=== PATIENT | female | born 1970 | race American Indian/Alaskan Native ===

== ENCOUNTER → 2016-11-22 | Outpatient (CLI) | payer BC ==
--- NOTE | 2016-11-23 15:51 | CR ---
EXAM DATE: 11/22/16 PATIENT'S AGE: 45 Patient: ANKIT THOMAS Facility: [place], [place] Site . Site : 1970 Study: XRay Chest [id number]/2017 12:23:31 PM Ordering Physician: Nick Matthews Final Report: INDICATION: Cough TECHNIQUE: Chest 2 views. COMPARISON: May 09, 2016 FINDINGS: Cardiovascular and mediastinum: Heart size and vasculature are normal in caliber and appearance. Mediastinum is within normal limits. Lungs and pleural spaces: Lungs are clear. No sign of infiltrate or mass. No sign of pleural effusion. No pneumothorax. Bones and soft tissues: No significant findings. IMPRESSION: No sign of acute disease. Dictated by Amaris Forrest MD @ Nov 22 2016 7:34PM (Electronic Signature) Report Signed by Proxy. [facility]
== END ==
LOC: MW.CHFP 11:18
PROVIDERS: ATTEND Emergency Medicine
DX: R05 Cough (principal); M25.561 Pain in right knee; M25.562 Pain in left knee
CPT/HCPCS: 36415; 71020; 71020-26; 85025; 85652; 87804

== ENCOUNTER 2016-12-15 05:54 | Emergency (ER) | payer BC ==
[2016-12-15] MEDS ORDERED: Sodium Chloride 0.9% 1,000 ML IV ONE (05:57)
[2016-12-15] MEDS ORDERED: Ondansetron 4 MG/2 ML SDV IVPUSH ONE (05:57)
[2016-12-15] MEDS ORDERED: Morphine 10 MG/ML Syringe IV ONE (05:58)
--- NOTE | 2016-12-15 06:00 | EDM.PDOC ---
ED HPI GENERAL MEDICAL PROBLEM - General Stated Complaint: HEAD PAIN (CANCER PATIENT) Time Seen by Provider: 12/15/16 05:59 Source of Information: Reports: Patient - History of Present Illness INITIAL COMMENTS - FREE TEXT/NARRATIVE: HISTORY AND PHYSICAL: History of present illness: [] Patient presents via EMS with headache vomiting history of brain tumor since 2010 or metastasis she does relay at current do to intractable vomiting No fever chills sweats Review of systems: As per history of present illness and below otherwise all systems reviewed and negative. Past medical history: As per history of present illness and as reviewed below otherwise noncontributory. Surgical history: As per history of present illness and as reviewed below otherwise noncontributory. Social history: No reported history of drug or alcohol abuse. Family history: As per history of present illness and as reviewed below otherwise noncontributory. Physical exam: HEENT: Atraumatic, normocephalic, pupils reactive, negative for conjunctival pallor or scleral icterus, mucous membranes moist, throat clear, neck supple, nontender, trachea midline. Lungs: Clear to auscultation, breath sounds equal bilaterally, chest nontender. Heart: S1S2, regular, negative for clicks, rubs, or JVD. Abdomen: Soft, nondistended, nontender. Negative for masses or hepatosplenomegaly. Negative for costovertebral tenderness. Pelvis: Stable nontender. Genitourinary: Deferred. Rectal: Deferred. Extremities: Atraumatic, negative for cords or calf pain. Neurovascular unremarkable. Neuro: Awake, alert, oriented. Cranial nerves II through XII unremarkable. Cerebellum unremarkable. Motor and sensory unremarkable throughout. Exam nonfocal. Diagnostics: [] Lab as below Head CT without Therapeutics: [] 1 L normal saline bolus Zofran 8 mg IV Dilaudid 0.5 mg IV Rocephin 1 g IV Patient discussed with Dr. Knox accepts transfer to [address] via air service Impression: CSF leak Chest indication intracranial 2 intranasal [] Headache Vomiting Brain lesion history Definitive disposition and diagnosis as appropriate pending reevaluation and review of above. Head Pain Score (Numeric/FACES): 10 - Related Data Allergies Allergy/AdvReac Type Severity Reaction Status Date / Time bee venom protein (honey bee) Allergy Anaphylactic Verified 12/15/16 06:14 Shock codeine Allergy Rash Verified 12/15/16 06:47 hydrocodone Allergy Other Verified 12/15/16 06:47 hydromorphone Allergy Anaphylactic Verified 12/15/16 06:47 Shock morphine Allergy Rash Verified 12/15/16 06:14 oxycodone Allergy Hives Verified 12/15/16 06:47 tetracycline Allergy Rash Verified 12/15/16 06:47 Home Meds: Home Meds . [Unable to Verify Home Med List] 12/15/16 [History] ED ROS GENERAL - Review of Systems Review Of Systems: ROS reveals no pertinent complaints other than HPI. ED EXAM, GENERAL - Physical Exam Exam: See Below Course - Vital Signs Last Recorded V/S: Last Vital Signs Temp 35 C L 12/15/16 06:00 Pulse 75 12/15/16 06:58 Resp 18 12/15/16 06:58 BP 186/86 H 12/15/16 06:58 Pulse Ox 99 12/15/16 06:58 - Orders/Labs/Meds Orders: Active Orders 24 hr Category Date Time Status Head wo Cont [CT] Stat Exams 12/15/16 05:57 Taken UA W/MICROSCOPIC [URIN] Stat Lab 12/15/16 06:40 Results cefTRIAXone [Rocephin in Dextrose,Iso-Osm 1 GM/50 ML] 1 Med 12/15/16 07:00 Active gm Premix Bag 1 bag IV ONETIME Medication Orders Ceftriaxone Sodium/Dextrose 1 (gm/ Premix) 50 mls @ 100 mls/hr IV ONETIME ONE Stop: 12/15/16 07:29 Labs: Laboratory Tests 12/15/16 12/15/16 12/15/16 Range/Units 06:00 06:00 06:40 WBC 12.89 H (4.0-11.0) K/uL RBC 4.81 (4.30-5.90) M/uL Hgb 14.5 (12.0-16.0) g/dL Hct 44.0 (36.0-46.0) % MCV 91.5 (80.0-98.0) fL MCH 30.1 (27.0-32.0) pg MCHC 33.0 (31.0-37.0) g/dL RDW Std Deviation 62.1 H (28.0-62.0) fl RDW Coeff of Danielle 19 H (11.0-15.0) % Plt Count 222 (150-400) K/uL MPV 9.60 (7.40-12.00) fL Add Manual Diff YES Neutrophils % (Manual) 57 (48.0-80.0) % Band Neutrophils % 3 % Lymphocytes % (Manual) 35 (16.0-40.0) % Monocytes % (Manual) 5 (0.0-15.0) % Nucleated RBC % 0.4 /100WBC Absolute Seg Neuts 7.3 Band Neutrophils # 0.4 Lymphocytes # (Manual) 4.5 Monocytes # (Manual) 0.6 Nucleated RBCs # 0 K/uL Sodium 140 (136-146) mmol/L Potassium 3.8 (3.5-5.1) mmol/L Chloride 100 (98-110) mmol/L Carbon Dioxide 28 (21-31) mmol/L BUN 29 H (6.0-23.0) mg/dL Creatinine 0.8 (0.6-1.5) mg/dL Est Cr Clr Drug Dosing 61.77 mL/min Estimated GFR (MDRD) > 60.0 ml/min Glucose 148 H (60-110) mg/dL Calcium 10.0 (8.8-10.8) mg/dL Total Bilirubin 0.2 (0.1-1.5) mg/dL AST 12 (5-40) IU/L ALT 27 (8-54) IU/L Alkaline Phosphatase 95 (40-150) Total Protein 7.7 (6.0-8.0) g/dL Albumin 4.0 (3.5-5.0) g/dL Globulin 3.7 H (2.0-3.5) g/dL Albumin/Globulin Ratio 1.1 L (1.3-2.8) Urine Color YELLOW Urine Appearance CLEAR Urine pH 6.0 (5.0-8.0) Ur Specific [place] 1.020 (1.001-1.035) Urine Protein NEGATIVE (NEGATIVE) mg/dL Urine Glucose (UA) NEGATIVE (NEGATIVE) mg/dL Urine Ketones NEGATIVE (NEGATIVE) mg/dL Urine Occult Blood NEGATIVE (NEGATIVE) Urine Nitrite NEGATIVE (NEGATIVE) Urine Bilirubin NEGATIVE (NEGATIVE) Urine Urobilinogen 0.2 (<2.0) EU/dL Ur Leukocyte Esterase NEGATIVE (NEGATIVE) Meds: Medications Generic Name Dose Route Start Last Admin Trade Name Freq PRN Reason Stop Dose Admin Ceftriaxone Sodium/Dextrose 1 50 mls @ 100 mls/hr 12/15/16 07:00 gm/ Premix IV 12/15/16 07:29 ONETIME ONE Discontinued Medications Generic Name Dose Route Start Last Admin Trade Name Freq PRN Reason Stop Dose Admin Hydromorphone HCl 0.5 mg 12/15/16 06:19 Dilaudid IVPUSH ONETIME PRN Pain Sodium Chloride 1,000 mls @ 999 mls/hr 12/15/16 05:57 12/15/16 06:07 Normal Saline IV 12/15/16 06:57 999 mls/hr STAT ONE Administration Morphine Sulfate 2 mg 12/15/16 05:58 12/15/16 06:12 Morphine IV 12/15/16 05:59 Not Given ONETIME ONE Ondansetron HCl 8 mg 12/15/16 05:57 12/15/16 06:11 Zofran IVPUSH 12/15/16 05:58 8 mg ONETIME ONE Administration Departure - Departure Time of Disposition: 07:03 Disposition: DC/Tfer to Other 70 Condition: good, poor Clinical Impression: Brain lesion - Discharge Information - My Orders Last 24 Hours: My Active Orders 12/15/16 05:57 Head wo Cont [CT] Stat 12/15/16 06:40 UA W/MICROSCOPIC [URIN] Stat 12/15/16 07:00 cefTRIAXone [Rocephin in Dextrose,Iso-Osm 1 GM/50 ML] 1 gm Premix Bag 1 bag IV ONETIME - Assessment/Plan Last 24 Hours: My Active Orders 12/15/16 05:57 Head wo Cont [CT] Stat 12/15/16 06:40 UA W/MICROSCOPIC [URIN] Stat 12/15/16 07:00 cefTRIAXone [Rocephin in Dextrose,Iso-Osm 1 GM/50 ML] 1 gm Premix Bag 1 bag IV ONETIME
[2016-12-15] MEDS ORDERED: HYDROmorphone 2 MG/ML Syringe IVPUSH PRN (06:19)
[2016-12-15 06:45] LABS: CHLORIDE,CL 100 mmol/L (98-110); SODIUM,NA 140 mmol/L (136-146)
[2016-12-15 06:59] VITALS: BP 186/86
[2016-12-15] MEDS ORDERED: cefTRIAXone 1 GM in Premix Bag 1 BAG IV ONE (07:00)
--- NOTE | 2016-12-17 14:20 | CT ---
EXAM DATE: 12/15/16 PATIENT'S AGE: 46 Patient: ANKIT THOMAS Facility: [place], [place] Site . Site : 1970 Study: CT Head [id number]/20/2017 6:44:34 AM Ordering Physician: Shabbir Pablo Final Report: INDICATION: Severe headache for 2 days. The patient underwent craniotomy 1 month ago for tumor resection. TECHNIQUE: CT head without i.v. contrast. COMPARISON: MRI 09/03/2016 FINDINGS: CSF spaces: A large amount of pneumocephalus is present with gas seen predominantly within the subarachnoid spaces over the convexities and basilar cisterns extending to the level of the foramen magnum. Gas is also noted within the lateral ventricles, 3rd ventricle and 4th ventricles. Brain parenchyma: A gas-filled cavity seen in the right frontal lobe measuring 4.1 x 3.1 cm. On coronal image 18, this gas cavity has a wide communication through the skull base into the nasal cavity. There is mild surrounding vasogenic edema. Vasogenic edema suspected in the base of the left frontal lobe but difficult to assess due to reconstruction artifacts related to the skull and adjacent gas. No mass effect or midline shift is identified. Skull base and calvarium: Opacification of the right maxillary sinus is present with a small air-fluid level seen in the left maxillary sinus. Mucosal thickening is noted in the sphenoid sinus. The patient is status post prior ethmoid resection. The mastoid air cells are clear. The visualized orbits are grossly unremarkable. No skull fractures are seen. Bilateral frontal craniotomy noted. IMPRESSION: 1. There is a gas filled cavity in the right frontal lobe present with wide communication through the anterior skullbase into the nasal cavity. This cavity may be the result of recent tumor resection. 2. Large amount of subarachnoid gas is present and correlation with clinical history would be helpful to exclude CSF rhinorrhea through the large calvarial dehiscence in the frontal cranial fossa. 3. Neurosurgical consultation is recommended. The findings were discussed with Dr. Shea at 6:45 a.m. Dictated by Jacob Mcqueen MD @ 12/15/2016 6:56:10 AM Dictated by: Jacob Mcqueen MD @ 12/15/2016 07:01:38 (Electronic Signature) Report Signed by Proxy. [facility]
== END 2016-12-15 07:53 ==
LOC: MW.ED 05:54
DX: G93.9 Disorder of brain, unspecified (principal); Z91.030 Bee allergy status; Z88.5 Allergy status to narcotic agent; Z88.1 Allergy status to other antibiotic agents
CPT/HCPCS: 36415; 70450; 80053; 81001; 85025; 96361; 96365; 99285; J0696; J2405; J7040

== ENCOUNTER 2017-01-03 18:26 | Inpatient (IN) | payer BC ==
--- NOTE | 2017-01-03 18:48 | EDM.PDOC ---
<Janet Vaz - Last Filed: 01/03/17 18:36> ED HPI GENERAL MEDICAL PROBLEM - General Chief Complaint: General Stated Complaint: UNK Time Seen by Provider: 01/03/17 18:33 Source of Information: Reports: Patient, EMS - History of Present Illness INITIAL COMMENTS - FREE TEXT/NARRATIVE: History of present illness: []Patient has a history of a brain tumor diagnosed in 2010 and has had several complications including a cerebrospinal fluid leak that was treated in [facility] last month. She has been back in [place] for 1 week and has been receiving antibiotics and her mental status has rapidly declined. Dr. Romero spoke to her doctors at [facility] who requested a head CT and evaluation of her PICC line. Review of systems: As per history of present illness and below otherwise all systems reviewed and negative. Past medical history: As per history of present illness and as reviewed below otherwise noncontributory. Surgical history: As per history of present illness and as reviewed below otherwise noncontributory. Social history: No reported history of drug or alcohol abuse. Family history: As per history of present illness and as reviewed below otherwise noncontributory. Physical exam: General: Well developed, well nourished in NAD HEENT: Recent surgical scalp wound healing well without signs of infection,, facial edema, pupils reactive, negative for conjunctival pallor or scleral icterus, mucous membranes moist, throat clear, neck supple, nontender, trachea midline. Lungs: Clear to auscultation, breath sounds equal bilaterally, chest nontender. Heart: S1S2, regular, negative for clicks, rubs, or JVD. Abdomen: Soft, nondistended, nontender. Negative for masses or hepatosplenomegaly. Negative for costovertebral tenderness. Pelvis: Stable nontender. Genitourinary: Deferred. Rectal: Deferred. Extremities: Atraumatic, negative for cords right upper arm PICC line present Neuro: Awake, somnolent but arouses easily. Cranial nerves II through XII unremarkable. Cerebellum unremarkable. Motor and sensory unremarkable throughout. Exam nonfocal. Diagnostics: [] Therapeutics: [] Impression: [] Plan: [] Definitive disposition and diagnosis as appropriate pending reevaluation and review of above. Generalized Pain Score (Numeric/FACES): 10 - Related Data Allergies Allergy/AdvReac Type Severity Reaction Status Date / Time bee venom protein (honey bee) Allergy Anaphylactic Verified 01/03/17 18:33 Shock codeine Allergy Rash Verified 01/03/17 18:33 hydrocodone Allergy Other Verified 01/03/17 18:33 hydromorphone Allergy Anaphylactic Verified 01/03/17 18:33 Shock morphine Allergy Rash Verified 01/03/17 18:33 oxycodone Allergy Hives Verified 01/03/17 18:33 tetracycline Allergy Rash Verified 01/03/17 18:33 Home Meds: Home Meds Citalopram Hydrobromide [Celexa] 20 mg PO DAILY 01/03/17 [History] LORazepam 1 mg PO 01/03/17 [History] OLANZapine [ZyPREXA] 10 mg PO DAILY 01/03/17 [History] Prednisone [IMW: Prednisone] 10 mg PO 01/03/17 [History] Tapentadol HCl [Nucynta] 75 mg PO Q6HR PRN 01/03/17 [History] Vancomycin 1 gm IV Q12H 01/03/17 [History] Past Medical History Oncologic (Cancer) History: Reports: Other (See Below) Other Oncologic History: brain cancer ( patient is having tx in [place] since 2010 and was last seen in [place] october of this year ) - Past Surgical History Head Surgeries/Procedures: Reports: None Social & Family History - Tobacco Use Smoking Status *Q: Never Smoker - Caffeine Use Caffeine Use: Reports: None - Recreational Drug Use Recreational Drug Use: No Course - Vital Signs Last Recorded V/S: Last Vital Signs Temp 36.6 C 01/03/17 23:13 Pulse 104 H 01/03/17 23:13 Resp 16 01/03/17 23:13 BP 140/86 01/03/17 23:13 Pulse Ox 95 01/03/17 23:13 - Orders/Labs/Meds Orders: Active Orders 24 hr Category Date Time Status Chest 1V Frontal [CR] Stat Exams 01/03/17 18:50 Taken Head wo Cont [CT] Stat Exams 01/03/17 18:41 Taken Saline Lock Insert [OM.PC] Stat Oth 01/03/17 18:50 Ordered Labs: Laboratory Tests 01/03/17 01/03/17 Range/Units 19:31 19:31 WBC 4.95 (4.0-11.0) K/uL RBC 3.68 L (4.30-5.90) M/uL Hgb 11.0 L (12.0-16.0) g/dL Hct 33.7 L (36.0-46.0) % MCV 91.6 (80.0-98.0) fL MCH 29.9 (27.0-32.0) pg MCHC 32.6 (31.0-37.0) g/dL RDW Std Deviation 61.5 (28.0-62.0) fl RDW Coeff of Danielle 18 H (11.0-15.0) % Plt Count 139 L (150-400) K/uL MPV 9.00 (7.40-12.00) fL Add Manual Diff YES Neutrophils % (Manual) 61 (48.0-80.0) % Band Neutrophils % 5 % Lymphocytes % (Manual) 26 (16.0-40.0) % Monocytes % (Manual) 5 (0.0-15.0) % Eosinophils % (Manual) 1 (0.0-7.0) % Metamyelocytes % 2 % Nucleated RBC % 0.0 /100WBC Absolute Seg Neuts 3.0 Band Neutrophils # 0.2 Lymphocytes # (Manual) 1.3 Monocytes # (Manual) 0.2 Eosinophils # (Manual) 0 Absolute Metamyelocyte 0.1 Nucleated RBCs # 0 K/uL Sodium 137 (136-146) mmol/L Potassium 3.7 (3.5-5.1) mmol/L Chloride 107 (98-110) mmol/L Carbon Dioxide 20 L (21-31) mmol/L BUN 10 (6.0-23.0) mg/dL Creatinine 0.6 (0.6-1.5) mg/dL Est Cr Clr Drug Dosing 82.36 mL/min Estimated GFR (MDRD) > 60.0 ml/min Glucose 88 (60-110) mg/dL Calcium 8.5 L (8.8-10.8) mg/dL Total Bilirubin 0.8 (0.1-1.5) mg/dL AST 76 H (5-40) IU/L ALT 166 H (8-54) IU/L Alkaline Phosphatase 114 (40-150) Total Protein 6.4 (6.0-8.0) g/dL Albumin 3.4 L (3.5-5.0) g/dL Globulin 3.0 (2.0-3.5) g/dL Albumin/Globulin Ratio 1.1 L (1.3-2.8) Meds: Medications Discontinued Medications Generic Name Dose Route Start Last Admin Trade Name Davion PRN Reason Stop Dose Admin Dexamethasone 8 mg 01/03/17 20:27 01/03/17 20:59 Dexamethasone IVPUSH 01/03/17 20:28 Not Given ONETIME ONE Dexamethasone Confirm 01/03/17 20:34 01/03/17 20:40 Dexamethasone Administered 01/03/17 20:35 8 mg Dose Administration 10 mg .ROUTE .STK-MED ONE Fentanyl 50 mcg 01/03/17 19:47 01/03/17 19:59 Sublimaze IVPUSH 01/03/17 19:48 Not Given ONETIME ONE Fentanyl Confirm 01/03/17 19:50 01/03/17 20:31 Sublimaze Administered 01/03/17 19:51 Not Given Dose 100 mcg .ROUTE .STK-MED ONE Fentanyl 50 mcg 01/03/17 19:53 01/03/17 19:54 Sublimaze IVPUSH 01/03/17 19:54 50 mcg ONETIME ONE Administration Fentanyl Confirm 01/03/17 22:09 01/03/17 22:50 Sublimaze Administered 01/03/17 22:10 Not Given Dose 100 mcg .ROUTE .STK-MED ONE Fentanyl 50 mcg 01/03/17 22:13 01/03/17 22:15 Sublimaze IVPUSH 01/03/17 22:14 50 mcg NOW STA Administration Mannitol 36 gm 01/03/17 20:28 01/03/17 21:49 Mannitol 25% IV 01/03/17 20:29 36 gm ONETIME ONE Administration Departure - Departure Disposition: Refer to Observation Clinical Impression: Cerebral edema, Headache - Discharge Information <Erasmo Daniels - Last Filed: 01/04/17 03:08> ED HPI GENERAL MEDICAL PROBLEM - History of Present Illness INITIAL COMMENTS - FREE TEXT/NARRATIVE: KELLEY Benoit attending note by Dr. Erasmo Daniels M.D. Care assumed by me at 7 PM after initiation of full workup by Dr. Vaz. On my evaluation patient is alert oriented communicative and appropriate. She has a supple neck. She does have facial fullness consistent with cushingoid findings after chronic steroid administration. Respiratory rate and effort are normal. Her exam is nonfocal neurologically she is alert cooperative and able to comply with a complete neurologic exam including cranial nerves. Remainder of exam is unremarkable. Case initially discussed with patient's primary care doctor Dr. Romero is aware of history and findings. Case discussed with Dr. Tang insurance operations rep for Dr. Aquino. Dr. Tang and Dr. Alvarez both neurosurgeons at [facility]. Dr. Tang is aware history and findings including CT result of bilateral frontal lobe edema. He agrees with Decadron IV as well as mannitol 1/2 g per kilogram IV at this point. Case discussed with Dr. Devan Braun is aware of history and findings however Dr. Braun does not feel comfortable managing patient's diuresis with mannitol. Case discussed with ER at [facility]. He accepts patient in transfer if this is acceptable to neurosurgery, however Dr. Susan Neal the neurosurgeon on-call, feels that this case is not appropriate for her to accept given that the patient may require a scope of care beyond her available resources. Dr. Licona recommends the patient be transferred to [facility]. Case then discussed again with Dr. Tang at [facility]. Dr. Tang feels strongly that it's not appropriate to admit the patient to their neurosurgery service is no acute intervention is indicated. He recommends communication with a neuro-oncologist or another doctor to accept the transfer. One hour later we were contacted again by dispatch at [facility] Dr. Cheng, a neurologist, on the phone to discuss the case. Dr. Cheng I discussed the case at length and he reviewed the patient's entire case including the details of her radiographic and clinical findings after her surgeries. He clarifies that the patient had bifrontal cerebral edema and that the most relevant information will be a comparison of today's CT with the postoperative CT, which was not available to the radiologist reading our CT today. Images were transmitted and reviewed by Dr. Cheng. Case was discussed again at length and he states that he have reviewed the findings and the studies with their neuroradiologist and both of them agree that there is no significant/ substantial change from the postoperative study with bifrontal edema. Therefore he recommends that no diuresis is indicated which makes it possible to admit the patient here for further workup including MRI and further communication with their neurosurgery service for collaborative decision-making and disposition tomorrow. Dr. Cheng recommends no further treatment this evening and requested we contact her with the MRI results tomorrow. This was discussed again with Dr. Braun who is aware of history and findings and agrees with observation admission to his service. He will orchestrate the MRI communicated with the neurosurgery service at [facility] and do further workup and treatment as indicated including possible transfer if clinically or radiographically indicated tomorrow. Patient stable and observation admission to the medical floor in place. Critical care 73 minutes ED ROS GENERAL - Review of Systems Review Of Systems: See Below (History of present illness) ED EXAM, GENERAL - Physical Exam Exam: See Below (History of present illness) Departure - Departure Time of Disposition: 00:02 Condition: good
[2017-01-03] MEDS ORDERED: fentaNYL 250 MCG/5 ML SDV IVPUSH ONE (19:47)
[2017-01-03] MEDS ORDERED: fentaNYL 100 MCG/2 ML SDV ONE ×2 (19:50→22:09)
[2017-01-03] MEDS ORDERED: fentaNYL 100 MCG/2 ML SDV IVPUSH ONE (19:53)
[2017-01-03 19:58] LABS: CHLORIDE,CL 107 mmol/L (98-110); SODIUM,NA 137 mmol/L (136-146)
[2017-01-03] MEDS ORDERED: Dexamethasone 4 MG/ML SDV IVPUSH ONE (20:27)
[2017-01-03] MEDS ORDERED: Mannitol 12.5 GM/50 ML SDV IV ONE (20:28)
[2017-01-03] MEDS ORDERED: Dexamethasone 10 MG/ML SDV ONE (20:34)
[2017-01-03] MEDS ORDERED: fentaNYL 100 MCG/2 ML SDV IVPUSH STA (22:13)
[2017-01-04] MEDS ORDERED: Gadobenate Dimeglumine 529 MG/ML 20 ML SDV IVPUSH STA (08:21)
--- NOTE | 2017-01-04 10:59 | CT ---
EXAM DATE: 01/03/17 PATIENT'S AGE: 46 Patient: ANKIT THOMAS Facility: [place], [place] Site . Site : 1970 Study: CT Head [id number]/8/2017 6:51:37 PM Ordering Physician: Milind Gonzales Final Report: HISTORY: Change in the level consciousness, history of brain cancer. TECHNIQUE: The head was scanned in axial plane at 3 mm intervals without IV contrast. Reconstructed bone windows obtained as well as sagittal coronal reconstructions. COMPARISON: 15 Dec 2016. IMPRESSION: There is persistent opacification of the right maxillary sinus. A persistent air -fluid level seen within the left maxillary sinus. Soft tissue density fills the sphenoid sinus without change. There has been ethmoid resection. Bilateral frontal craniotomy is present. There has been interval left craniotomy with repair at the defect of the anterior skullbase and nasal cavity with appearance of a mesh placed at the skullbase. A calvarial defect remains at the left frontal region. The bandlike increased density at the surgical bed most likely represents a mass but makes it difficult to exclude a small amount of extra- axial blood. There has been resolution of the pneumocephalus. There is new extensive hypodensity for vasogenic edema again, both frontal lobes. No midline shift is identified. Ventricles are normal size. Temporal tips are smaller than prior exam. IMPRESSION: 1. Interval repair of the communication between the anterior skullbase and the nasal cavity with appearance placement of mesh. The increased density at the surgical bed most likely from mesh makes it difficult to exclude a small amount of extra-axial blood. 2. There is resolution of pneumocephalus. 3. New extensive hypodensity within the white matter of both frontal lobes most consistent vasogenic edema. Report called to Dr Daniels 03 January 2017 @ 1916 hours. Dictated by Renetta Ferreira MD @ 01/03/2017 7:13:09 PM Dictated by: Renetta Ferreira MD @ 01/03/2017 19:16:19 (Electronic Signature) Report Signed by Proxy. [facility]
--- NOTE | 2017-01-04 11:00 | CR ---
EXAM DATE: 01/03/17 PATIENT'S AGE: 46 Patient: ANKIT THOMAS Facility: [place], [place] Site . Site : 1970 Study: XRay Chest [id number]/8/2017 7:09:45 PM Ordering Physician: Milind Gonzales Final Report: INDICATION: weakness TECHNIQUE: Chest radiograph 1 view COMPARISON: 11/22/2016. FINDINGS: Cardiovascular and mediastinum: The heart silhouette is normal in size and morphology. The mediastinum is normal in appearance. Interval placement of right PICC line is noted with the tip coiled, likely within the proximal left innominate vein. Lungs and pleural spaces: Both lungs are unremarkable in appearance. No sign of pleural effusion seen. No pneumothorax is identified. Bones and soft tissues: No significant findings. IMPRESSION: 1. No acute cardiopulmonary disease is seen. 2. Interval placement of right PICC line is noted with the tip coiled, likely within the proximal left innominate vein. Dictated by Jacob Mcqueen MD @ 01/03/2017 7:22:19 PM Dictated by: Jacob Mcqueen MD @ 01/03/2017 19:22:21 (Electronic Signature) Report Signed by Proxy. [facility]
--- NOTE | 2017-01-04 11:35 | MR ---
EXAMINATION: MRI of the brain with and without contrast HISTORY: Altered mental status COMPARISON: CT dated 01/03/2017 TECHNIQUE: Multiplanar and multisequence images obtained through the brain before and following the administration of 14 mL of Gadavist. FINDINGS: Postsurgical changes are noted along the frontal calvarium within the region of the cribri form plate. There is underlying edema within the frontal lobes bilaterally. Mild diffusion restricti on is noted within the medial and anterior aspect of the left frontal lobe, however this is the surg ical bed an outside of the parenchyma. There is mild meningeal enhancement. Postsurgical changes ext end to the region of the sphenoid sinus with mild underlying heterogeneity, possibly postoperative h ematoma given the intrinsic T1 signal. No abnormal intracranial enhancement identified. No significa nt extra-axial fluid collection. There is fluid within the right maxillary sinus. Fluid is also note d within the mastoid air cells, left greater than right. The ventricles appear symmetric. The cerebe llum, midbrain, and cerebellar pontine angles appear normal. The craniocervical junction is unremark able. Pituitary gland and sella appear normal. The midline structures are otherwise normal. The orbi ts and globes are symmetric. IMPRESSION: 1. Postoperative changes noted within the region of the cribriform plate and frontal lobes. There is postsurgical encephalomalacia and moderate edema within the frontal lobes bilaterally. 2. No evidence of parenchymal diffusion restriction. 3. Opacification of the right maxillary sinus and the mastoid air cells bilaterally, left greater th an right. 4. Mild meningeal enhancement likely postsurgical in nature.
[2017-01-04] MEDS ORDERED: Acetaminophen 325 MG Tab PO PRN (12:03)
[2017-01-04] MEDS ORDERED: Cefepime 2 GM in Premix Bag 1 BAG IV SCH (12:45)
[2017-01-04] MEDS: Carboxymethylcellulose Sodium 0.5% Ophth Soln 0.4 ML UD Box of 30 EYEBOTH PRN ×2 (13:09→20:26)
[2017-01-04 13:35] LABS: CHLORIDE,CL 107 mmol/L (98-110); SODIUM,NA 140 mmol/L (136-146)
[2017-01-04] MEDS: TAPENTADOL HCL 50 MG PO PRN (17:35)
--- NOTE | 2017-01-04 17:46 | PCM.HP ---
H&P History of Present Illness - General Date of Service: 01/04/17 Admit Problem/Dx: Admission Diagnosis/Problem Admission Diagnosis/Problem Cerebral edema - History of Present Illness Initial Comments - Free Text/Narative: 46 yo female admitted 01/04/17 for cerebral edema with pmh of neuroblastoma s/p excision and multiple revisions at [place] with recent venous graft placement. Patient has history of neuroblastoma diagnosed in 2010 with multiple subsequent complications including CSF leak and most recent venous graft placement at [facility] last month. Patient had been in [place] for one week receiving antibiotics and her mental status had rapidly declined. The patient's PCP, Dr. Romero, had spoke with her physicians at [facility] who requested a head CT and evaluation of her PICC line thus she presented to the emergency department. In emergency department CT of the head was suggestive of bilateral frontal lobe edema. Case was then discussed with Dr. Tang plater production for Dr. Aquino neurosurgeons at [facility]. Dr. Tang was aware of history and findings including CT results bilateral frontal lobe edema. He agreed with the use of Decadron IV as well as mannitol half gram per kilogram. Case was then discussed with Dr. Devan Braun who secondary to the patient's complicated neuro status felt patient was not appropriate for admission and should be transfer. Case was discussed with ER physician at [facility] who talked with their on-call neurosurgeon Dr. Susan Neal who recommended the patient be transferred to [facility]. Patient was given Decadron and Mannitol. Dr. Cheng a neurolgist at [facility] discussed the case with our ED and clarified that the patient had bifrontal cerebral edema but comparison from previous studies would need to be done to determine it's significance. He talked with their neuroradiolgist and both agreed that there was no significant change from post op study to with respect to bifrontal edema. After administration of Decadron and mannitol patient's neuro status improved. Case was once again discussed with Dr. Braun who agreed to admit patient for observation with MRI and comparison followup with [facility] for possible transfer if any significant changes. Generalized Pain Score (Numeric/FACES): 0 - Related Data Allergies/Adverse Reactions: Allergies Allergy/AdvReac Type Severity Reaction Status Date / Time bee venom protein (honey bee) Allergy Anaphylactic Verified 01/03/17 18:33 Shock codeine Allergy Rash Verified 01/03/17 18:33 hydrocodone Allergy Other Verified 01/03/17 18:33 hydromorphone Allergy Anaphylactic Verified 01/03/17 18:33 Shock morphine Allergy Rash Verified 01/03/17 18:33 oxycodone Allergy Hives Verified 01/03/17 18:33 tetracycline Allergy Rash Verified 01/03/17 18:33 Home Medications: Home Meds Citalopram Hydrobromide [Celexa] 20 mg PO DAILY 01/03/17 [History] LORazepam 1 mg PO 01/03/17 [History] OLANZapine [ZyPREXA] 10 mg PO DAILY 01/03/17 [History] Prednisone [IMW: Prednisone] 10 mg PO 01/03/17 [History] Vancomycin 1 gm IV Q12H 01/03/17 [History] Tapentadol HCl [Nucynta] 50 mg PO Q6HR PRN 01/04/17 [History] Past Medical History HEENT History: Reports: None Cardiovascular History: Reports: None Respiratory History: Reports: None Gastrointestinal History: Reports: None Genitourinary History: Reports: None 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: Musculoskeletal History: Reports: None Neurological History: Reports: None Psychiatric History: Reports: Anxiety, Depression Endocrine/Metabolic History: Reports: None Hematologic History: Reports: None Immunologic History: Reports: None Oncologic (Cancer) History: Reports: Other (See Below) Other Oncologic History: brain cancer ( patient is having tx in [place] since 2010 and was last seen in [place] this year ) Dermatologic History: Reports: None - Infectious Disease History Infectious Disease History: Reports: None - Past Surgical History Head Surgeries/Procedures: Reports: None HEENT Surgical History: Reports: None Cardiovascular Surgical History: Reports: None Respiratory Surgical History: Reports: None GI Surgical History: Reports: None Female Surgical History: Reports: None Endocrine Surgical History: Reports: None Neurological Surgical History: Reports: Intracranial Musculoskeletal Surgical History: Reports: None Dermatological Surgical History: Reports: Skin Graft Social & Family History - Family History Family Medical History: Noncontributory - Tobacco Use Smoking Status *Q: Current Every Day Smoker Years of Tobacco use: 30 Packs/Tins Daily: 1 Second Hand Smoke Exposure: No - Caffeine Use Caffeine Use: Reports: Tea - Recreational Drug Use Recreational Drug Use: No H&P Review of Systems - Review of Systems: Review Of Systems: See Below General: Denies: Fever, Chills, Diaphoresis HEENT: Denies: Contact Lenses, Sore Throat Pulmonary: Denies: Shortness of Breath, Hemoptysis Cardiovascular: Denies: Chest Pain Gastrointestinal: Denies: Abdominal Pain, Black Stool, Bloody Stool Genitourinary: Denies: Dysuria Musculoskeletal: Denies: Neck Pain Skin: Denies: Cyanosis Psychiatric: Denies: Confusion, Depression Neurological: Denies: Confusion, Dizziness Hematologic/Lymphatic: Denies: Anemia Immunologic: Denies: Anaphylaxis Exam - Exam Exam: See Below - Vital Signs Vital Signs: Last Vital Signs Temp 36.7 C 01/04/17 17:01 Pulse 87 01/04/17 17:01 Resp 16 01/04/17 17:01 BP 157/94 H 01/04/17 17: Pulse Ox 99 01/04/17 17:01 Weight: 70.4 kg - Exam Quality Assessment: DVT Prophylaxis General: Alert, Oriented, Cooperative HEENT: PERRLA, Hearing Intact, Mucosa Moist & [place], Nares Patent, Normal Nasal Septum, Posterior Pharynx Clear, Conjunctiva Clear, EOMI, EACs Clear, TMs Clear Neck: Supple, Trachea Midline, 2 Lungs: Clear to Auscultation, Normal Respiratory Effort Cardiovascular: Regular Rate, Regular Rhythm Abdomen: Normal Bowel Sounds, Soft Extremities: Normal Inspection, Normal Pulses Peripheral Pulses: 2+: Radial (L), Radial (R), Posterior Tibial (L), Posterior Tibial (R), Dorsalis Pedis (L), Dorsalis Pedis (R) Skin: Warm, Dry, Intact Neurological: Cranial Nerves Intact, Reflexes Equal Bilateral Neuro Extensive - Mental Status: Alert, Oriented x3, Normal Mood/Affect, Normal Cognition Neuro Extensive - Motor, Sensory, Reflexes: CN II-XII Intact Psychiatric: Alert, Normal Affect, Normal Mood - Patient Data Lab Results last 24 hrs: Laboratory Results - last 24 hr 01/04/17 01/04/17 Range/Units 13:00 13:00 WBC 7.33 (4.0-11.0) K/uL RBC 3.52 L (4.30-5.90) M/uL Hgb 10.6 L (12.0-16.0) g/dL Hct 32.0 L (36.0-46.0) % MCV 90.9 (80.0-98.0) fL MCH 30.1 (27.0-32.0) pg MCHC 33.1 (31.0-37.0) g/dL RDW Std Deviation 58.6 (28.0-62.0) fl RDW Coeff of Danielle 18 H (11.0-15.0) % Plt Count 151 (150-400) K/uL MPV 9.40 (7.40-12.00) fL Neut % (Auto) 79.8 (48.0-80.0) % Lymph % (Auto) 15.7 L (16.0-40.0) % [place] % (Auto) 4.4 (0.0-15.0) % Eos % (Auto) 0.0 (0.0-7.0) % Baso % (Auto) 0.1 (0.0-1.5) % Neut # (Auto) 5.9 H (1.4-5.7) K/uL Lymph # (Auto) 1.2 (0.6-2.4) K/uL [place] # (Auto) 0.3 (0.0-0.8) K/uL Eos # (Auto) 0.0 (0.0-0.7) K/uL Baso # (Auto) 0.0 (0.0-0.1) K/uL Nucleated RBC % 0.0 /100WBC Nucleated RBCs # 0 K/uL Sodium 140 (136-146) mmol/L Potassium 3.8 (3.5-5.1) mmol/L Chloride 107 (98-110) mmol/L Carbon Dioxide 21 (21-31) mmol/L BUN 15 (6.0-23.0) mg/dL Creatinine 0.7 (0.6-1.5) mg/dL Est Cr Clr Drug Dosing 70.60 mL/min Estimated GFR (MDRD) > 60.0 ml/min Glucose 220 H (60-110) mg/dL Calcium 9.0 (8.8-10.8) mg/dL Total Bilirubin 0.4 (0.1-1.5) mg/dL AST 39 (5-40) IU/L ALT 148 H (8-54) IU/L Alkaline Phosphatase 111 (40-150) Total Protein 6.4 (6.0-8.0) g/dL Albumin 3.6 (3.5-5.0) g/dL Globulin 2.8 (2.0-3.5) g/dL Albumin/Globulin Ratio 1.3 (1.3-2.8) Result Diagrams: 01/04/17 13:00 01/04/17 13:00 *Q Meaningful Use (ADM) - VTE *Q VTE Criteria *Q: - Stroke *Q Stroke Criteria *Q: - AMI *Q AMI Criteria *Q: - Problem List (1) Cerebral edema SNOMED Code(s): 9995679 ICD Code: G93.6 - CEREBRAL EDEMA Status: Acute Priority: High Current Visit: Yes (2) Brain lesion SNOMED Code(s): 876173762 ICD Code: G93.9 - DISORDER OF BRAIN, UNSPECIFIED Status: Chronic Priority : High Current Visit: Yes Problem List Initiated/Reviewed/Updated: Yes Orders Last 24hrs: Active Orders 24 hr Category Date Time Status Admission Status [Patient Status] [ADT] Routine ADT 01/03/17 23:59 Active Antiembolic Devices [RC] PER UNIT ROUTINE Care 01/04/17 02:07 Active Oxygen Therapy [RC] PRN Care 01/04/17 02:06 Active VTE/DVT Education [RC] PER UNIT ROUTINE Care 01/04/17 02:06 Active Vital Signs [RC] Q4H Care 01/04/17 02:06 Active Regular Diet [DIET] Diet 01/04/17 Breakfast Active VANCOMYCIN TROUGH [CHEM] Routine Lab 01/06/17 01:00 Ordered Acetaminophen [Tylenol] Med 01/04/17 12:03 Active 650 mg PO Q6H PRN Carboxymethylcellulose Sodium [Refresh Plus 0.5%] Med 01/04/17 12:05 Active 1 each EYEBOTH ASDIRECTED PRN Dexamethasone Med 01/04/17 21:00 Active 2 mg PO BID Ertapenem [INVanz] 1 gm Med 01/04/17 21:00 Active Sodium Chloride 0.9% [Normal Saline] 50 ml IV Q24H Patient's Own Medication [Ptom] Med 01/04/17 17:08 Active 1 each PO Q6HR PRN Vancomycin 1,250 mg Med 01/04/17 13:30 Active Sodium Chloride 0.9% [Normal Saline] 250 ml IV Q12H Vancomycin Pharmacy to Dose [Pharmacy to Dose - Med 01/04/17 12:45 Active Vancomycin] 1 dose .XX ASDIRECTED Sequential Compression Device [OM.PC] Per Unit Routine Oth 01/04/17 02:06 Ordered Medication Orders Acetaminophen (Tylenol) 650 mg PO Q6H PRN PRN Reason: Pain Last Admin: 01/04/17 13:08 Dose: 650 mg Artificial Tears (Refresh Plus 0.5%) 1 each EYEBOTH ASDIRECTED PRN PRN Reason: Dry Eyes Last Admin: 01/04/17 13:09 Dose: 1 mm Dexamethasone (Dexamethasone) 2 mg PO BID RIVER Vancomycin HCl 1,250 mg/ (Sodium Chloride) 250 mls @ 250 mls/hr IV Q12H RIVER Last Admin: 01/04/17 14:30 Dose: 250 mls/hr Ertapenem 1 gm/ Sodium (Chloride) 50 mls @ 100 mls/hr IV Q24H RIVER Tapentadol Hcl 50 Mg 1 each PO Q6HR PRN PRN Reason: Pain Last Admin: 01/04/17 17:35 Dose: 1 each Vancomycin HCl (Pharmacy To Dose - Vancomycin) 1 dose .XX ASDIRECTED [facility] Assessment/Plan Comment:: 46 yo female admitted 01/04/17 for cerebral edema with pmh of neuroblastoma s/p excision and multiple revisions at [place] with recent venous graft placement. MRI was performed and images were pushed to [facility] where Dr. Cheng, neurologist, reviewed the films with their neuroradiologist and determined that there was no significant changes from previous postoperative imaging. Patient will cont. IV Ertapenim 1 g q 24 hrs and Vancomycin until she is seen again at [place]. Dr. Cheng recommended 1 wk of Dexamethasone 2 mg PO BID followed by 1 wk of Dexamethasone 1 mg PO BID. He also suggested that the patient would most likely benefit more from a halfway facility that can administer abx as well as watch closely for any further changes in mental status that may indicate future cerebral edema. Will work with mental health social worker for local placement
[2017-01-04] MEDS ORDERED: Hydrocortisone 1% Crm 30 GM Tube TOP PRN (19:37)
[2017-01-04] MEDS: Dexamethasone 4 MG Tab PO SCH (20:21)
[2017-01-04] MEDS: Ertapenem 1 GM in Sodium Chloride 0.9% 50 ML IV SCH (20:27)
[2017-01-04] MEDS ORDERED: Lisinopril 10 MG Tab PO ONE (21:18)
[2017-01-05] MEDS: TAPENTADOL HCL 50 MG PO PRN ×2 (05:03→14:36)
[2017-01-05] MEDS: Dexamethasone 4 MG Tab PO SCH ×2 (09:11→20:55)
--- NOTE | 2017-01-05 12:44 | PCM.PN ---
- Review of Systems Systems Review Comment:: feeling well no complaints. - Patient Data Vitals - most recent: Last Vital Signs Temp 36.4 C 01/05/17 08:00 Pulse 87 01/05/17 08:00 Resp 18 01/05/17 08:00 BP 145/93 H 01/05/17 08:00 Pulse Ox 96 01/05/17 08:00 Weight - most recent: 70.4 kg I&O - last 24 hours: Intake & Output 01/04/17 01/05/17 01/05/17 22:59 06:59 14:59 Intake Total 541 900 Output Total 800 800 Balance -259 100 Lab Results last 24 hrs: Laboratory Results - last 24 hr 01/04/17 01/04/17 01/05/17 Range/Units 13:00 13:00 11:07 WBC 7.33 (4.0-11.0) K/uL RBC 3.52 L (4.30-5.90) M/uL Hgb 10.6 L (12.0-16.0) g/dL Hct 32.0 L (36.0-46.0) % MCV 90.9 (80.0-98.0) fL MCH 30.1 (27.0-32.0) pg MCHC 33.1 (31.0-37.0) g/dL RDW Std Deviation 58.6 (28.0-62.0) fl RDW Coeff of Danielle 18 H (11.0-15.0) % Plt Count 151 (150-400) K/uL MPV 9.40 (7.40-12.00) fL Neut % (Auto) 79.8 (48.0-80.0) % Lymph % (Auto) 15.7 L (16.0-40.0) % [place] % (Auto) 4.4 (0.0-15.0) % Eos % (Auto) 0.0 (0.0-7.0) % Baso % (Auto) 0.1 (0.0-1.5) % Neut # (Auto) 5.9 H (1.4-5.7) K/uL Lymph # (Auto) 1.2 (0.6-2.4) K/uL [place] # (Auto) 0.3 (0.0-0.8) K/uL Eos # (Auto) 0.0 (0.0-0.7) K/uL Baso # (Auto) 0.0 (0.0-0.1) K/uL Nucleated RBC % 0.0 /100WBC Nucleated RBCs # 0 K/uL Sodium 140 (136-146) mmol/L Potassium 3.8 (3.5-5.1) mmol/L Chloride 107 (98-110) mmol/L Carbon Dioxide 21 (21-31) mmol/L BUN 15 (6.0-23.0) mg/dL Creatinine 0.7 (0.6-1.5) mg/dL Est Cr Clr Drug Dosing 70.60 mL/min Estimated GFR (MDRD) > 60.0 ml/min Glucose 220 H (60-110) mg/dL POC Glucose 151 H (60-110) mg/dL Calcium 9.0 (8.8-10.8) mg/dL Total Bilirubin 0.4 (0.1-1.5) mg/dL AST 39 (5-40) IU/L ALT 148 H (8-54) IU/L Alkaline Phosphatase 111 (40-150) Total Protein 6.4 (6.0-8.0) g/dL Albumin 3.6 (3.5-5.0) g/dL Globulin 2.8 (2.0-3.5) g/dL Albumin/Globulin Ratio 1.3 (1.3-2.8) Med Orders - Current: Current Medications Acetaminophen (Tylenol) 650 mg PO Q6H PRN PRN Reason: Pain Last Admin: 01/04/17 13:08 Dose: 650 mg Artificial Tears (Refresh Plus 0.5%) 1 each EYEBOTH ASDIRECTED PRN PRN Reason: Dry Eyes Last Admin: 01/04/17 20:26 Dose: 1 mm Dexamethasone (Dexamethasone) 2 mg PO BID RIVER Last Admin: 01/05/17 09:11 Dose: 2 mg Hydrocortisone (Hydrocortisone 1% Crm) 30 gm TOP ASDIRECTED PRN PRN Reason: Itching Last Admin: 01/04/17 20:19 Dose: 1 applic Vancomycin HCl 1,250 mg/ (Sodium Chloride) 250 mls @ 250 mls/hr IV Q12H RIVER Last Admin: 01/05/17 00:46 Dose: 250 mls/hr Ertapenem 1 gm/ Sodium (Chloride) 50 mls @ 100 mls/hr IV Q24H [facility] Last Admin: 01/04/17 20:27 Dose: 100 mls/hr Tapentadol Hcl 50 Mg 1 each PO Q6HR PRN PRN Reason: Pain Last Admin: 01/05/17 05:03 Dose: 1 each Vancomycin HCl (Pharmacy To Dose - Vancomycin) 1 dose .XX ASDIRECTED [facility] Discontinued Medications Dexamethasone (Dexamethasone) 8 mg IVPUSH ONETIME ONE Stop: 01/03/17 20:28 Last Admin: 01/03/17 20:59 Dose: Not Given Dexamethasone (Dexamethasone) Confirm Administered Dose 10 mg .ROUTE .STK-MED ONE Stop: 01/03/17 20:35 Last Admin: 01/03/17 20:40 Dose: 8 mg Fentanyl (Sublimaze) 50 mcg IVPUSH ONETIME ONE Stop: 01/03/17 19:48 Last Admin: 01/03/17 19:59 Dose: Not Given Fentanyl (Sublimaze) Confirm Administered Dose 100 mcg .ROUTE .STK-MED ONE Stop: 01/03/17 19:51 Last Admin: 01/03/17 20:31 Dose: Not Given Fentanyl (Sublimaze) 50 mcg IVPUSH ONETIME ONE Stop: 01/03/17 19:54 Last Admin: 01/03/17 19:54 Dose: 50 mcg Fentanyl (Sublimaze) Confirm Administered Dose 100 mcg .ROUTE .STK-MED ONE Stop: 01/03/17 22:10 Last Admin: 01/03/17 22:50 Dose: Not Given Fentanyl (Sublimaze) 50 mcg IVPUSH NOW STA Stop: 01/03/17 22:14 Last Admin: 01/03/17 22:15 Dose: 50 mcg Gadobenate Dimeglumine (Multihance) 20 ml IVPUSH ONETIME STA Stop: 01/04/17 08:22 Last Admin: 01/04/17 08:32 Dose: 14 ml Cefepime HCl 2 gm/ Premix 50 mls @ 100 mls/hr IV Q8H [facility] Last Admin: 01/04/17 13:45 Dose: 100 mls/hr Lisinopril (Prinivil) 10 mg PO ONETIME ONE Stop: 01/04/17 21:19 Last Admin: 01/04/17 21:31 Dose: 10 mg Mannitol (Mannitol 25%) 36 gm IV ONETIME ONE Stop: 01/03/17 20:29 Last Admin: 01/03/17 21:49 Dose: 36 gm - Exam General: alert, cooperative Lungs: Clear to auscultation, Normal respiratory effort Cardiovascular: Regular Rate, Regular Rhythm Abdomen: bowel sounds present, soft, no tenderness, no distension Extremities: no edema Skin: warm, dry, intact Neurological: no new focal deficit - Problem List Review Problem List Initiated/Reviewed/Updated: Yes - My Orders Last 24 Hours: My Active Orders 01/04/17 13:30 Vancomycin 1,250 mg Sodium Chloride 0.9% [Normal Saline] 250 ml IV Q12H 01/05/17 10:00 Accu Check [Blood Glucose Check, Bedside] [RC] TIDAC 01/05/17 10:36 Consult to Physical Therapy [PT Evaluation and Treatment] [CONS] Routine 01/05/17 Lunch ADA Diabetic [[place] [employer] Diet] [DIET] 01/06/17 01:00 VANCOMYCIN TROUGH [CHEM] Routine - Plan Plan:: 46 yo female admitted 01/04/17 for cerebral edema with pmh of neuroblastoma s/p excision and multiple revisions at [place] with recent venous graft placement. MRI was performed and images were pushed to [facility] where Dr. Cheng, neurologist, reviewed the films with their neuroradiologist and determined that there was no significant changes from previous postoperative imaging. Patient will cont. IV Ertapenim 1 g q 24 hrs and Vancomycin until she is seen again at [place]. Dr. Cheng recommended 1 wk of Dexamethasone 2 mg PO BID followed by 1 wk of Dexamethasone 1 mg PO BID. [place] reported recommended discharge to swing bed from there facility for several weeks of monitoring but patient refused. Patient is ambulating but needs assistance with stairs. She also needs frequent observations on her mental status and behavioral changes. Patient has been behaving appropriately here. 's work duties and other sick family members limit the amount of care he can provide at home. Anger issues between family members have limited options for additional help. I spoke with patient and she may be agreeable to placement. After talking at length with patient and they want to privately discuss amongst themselves later today regarding their preferences of placement or discharge home with home care.
[2017-01-05] MEDS: Carboxymethylcellulose Sodium 0.5% Ophth Soln 0.4 ML UD Box of 30 EYEBOTH PRN ×5 (13:31→21:55)
[2017-01-05] MEDS: Ertapenem 1 GM in Sodium Chloride 0.9% 50 ML IV SCH (20:57)
[2017-01-06] MEDS: Carboxymethylcellulose Sodium 0.5% Ophth Soln 0.4 ML UD Box of 30 EYEBOTH PRN (03:20)
[2017-01-06] MEDS: TAPENTADOL HCL 50 MG PO PRN ×2 (03:46→09:46)
[2017-01-06] MEDS: Dexamethasone 4 MG Tab PO SCH (09:04)
[2017-01-06 11:48] VITALS: BP 175/88
--- NOTE | 2017-01-06 11:49 | PCM.DCSUM1 ---
Discharge Summary - Discharge Data Discharge Date: 01/06/17 Discharge Disposition: Home, Self-Care 01 Condition: Good - Patient Summary/Data Consults: Consultations 01/05/17 10:36 Consult to Physical Therapy [PT Evaluation and Treatment] [CONS] Routine Hospital Course: 46 yo female whot has history of neuroblastoma diagnosed in 2010 with multiple subsequent complications including CSF leak and most recent venous graft placement at [facility] last month. Patient had been in [place] for one week receiving antibiotics and her mental status had rapidly declined. The patient's PCP, Dr. Romero, had spoke with her physicians at [facility] who requested a head CT line thus she presented to the emergency department. Patient had a Head CT and MRI which did not show any acute findings. The case was discussed wtih Dr. Cheng who recommend 1 wk of Dexamethasone 2 mg PO BID followed by 1 wk of Dexamethasone 1 mg PO BID. Patient had been receiving Ertapenim and Vancomycin with home infusions prior to admission for her history of encephalitis and this was continued while she was here. Patient was ambulating well and had no behavioral issues while hospitalized. Discharge home was felt safe if she had someone watching over her. had noted anger issues at home which appears to be his main frustration at providing care for her at home. After family discussion the patient has agreed to enter counseling and allow the help from her mother at home. The has decided to take patient home and to resume home IV antibiotics. Family was instructed to report any mental status changes. - Discharge Plan Home Medications: Home Meds Citalopram Hydrobromide [Celexa] 20 mg PO DAILY 01/03/17 [History] LORazepam 1 mg PO 01/03/17 [History] OLANZapine [ZyPREXA] 10 mg PO DAILY 01/03/17 [History] Prednisone [IMW: Prednisone] 10 mg PO 01/03/17 [History] Vancomycin 1 gm IV Q12H 01/03/17 [History] Tapentadol HCl [Nucynta] 50 mg PO Q6HR PRN 01/04/17 [History] Forms: ED Department Discharge Referrals: PCP,None [Primary Care Provider] - - Patient Data Vitals - Most Recent: Last Vital Signs Temp 36.2 C 01/06/17 08:08 Pulse 65 01/06/17 08:08 Resp 22 H 01/06/17 08:08 BP 146/71 H 01/06/17 08:08 Pulse Ox 100 01/06/17 08:08 Weight - Most Recent: 70.4 kg I&O - Last 24 hours: Intake & Output 01/05/17 01/06/17 01/06/17 22:59 06:59 14:59 Intake Total 1000 610 Output Total 700 300 Balance 300 310 Lab Results - Last 24 hrs: Laboratory Results - last 24 hr 01/05/17 01/06/17 01/06/17 Range/Units 16:43 01:10 07:00 POC Glucose 115 H 148 H (60-110) mg/dL Vancomycin Trough 15.5 H (5-15) ug/mL 01/06/17 Range/Units 11:41 POC Glucose 112 H (60-110) mg/dL Vancomycin Trough (5-15) ug/mL Med Orders - Current: Current Medications Acetaminophen (Tylenol) 650 mg PO Q6H PRN PRN Reason: Pain Last Admin: 01/04/17 13:08 Dose: 650 mg Artificial Tears (Refresh Plus 0.5%) 1 each EYEBOTH ASDIRECTED PRN PRN Reason: Dry Eyes Last Admin: 01/06/17 03:20 Dose: 1 drop Dexamethasone (Dexamethasone) 2 mg PO BID RIVER Last Admin: 01/06/17 09:04 Dose: 2 mg Hydrocortisone (Hydrocortisone 1% Crm) 30 gm TOP ASDIRECTED PRN PRN Reason: Itching Last Admin: 01/04/17 20:19 Dose: 1 applic Vancomycin HCl 1,250 mg/ (Sodium Chloride) 250 mls @ 250 mls/hr IV Q12H RIVER Last Admin: 01/06/17 01:48 Dose: 250 mls/hr Ertapenem 1 gm/ Sodium (Chloride) 50 mls @ 100 mls/hr IV Q24H [place] Last Admin: 01/05/17 20:57 Dose: 100 mls/hr Tapentadol Hcl 50 Mg 1 each PO Q6HR PRN PRN Reason: Pain Last Admin: 01/06/17 09:46 Dose: 1 each Vancomycin HCl (Pharmacy To Dose - Vancomycin) 1 dose .XX ASDIRECTED RIVER Discontinued Medications Dexamethasone (Dexamethasone) 8 mg IVPUSH ONETIME ONE Stop: 01/03/17 20:28 Last Admin: 01/03/17 20:59 Dose: Not Given Dexamethasone (Dexamethasone) Confirm Administered Dose 10 mg .ROUTE .STK-MED ONE Stop: 01/03/17 20:35 Last Admin: 01/03/17 20:40 Dose: 8 mg Fentanyl (Sublimaze) 50 mcg IVPUSH ONETIME ONE Stop: 01/03/17 19:48 Last Admin: 01/03/17 19:59 Dose: Not Given Fentanyl (Sublimaze) Confirm Administered Dose 100 mcg .ROUTE .STK-MED ONE Stop: 01/03/17 19:51 Last Admin: 01/03/17 20:31 Dose: Not Given Fentanyl (Sublimaze) 50 mcg IVPUSH ONETIME ONE Stop: 01/03/17 19:54 Last Admin: 01/03/17 19:54 Dose: 50 mcg Fentanyl (Sublimaze) Confirm Administered Dose 100 mcg .ROUTE .STK-MED ONE Stop: 01/03/17 22:10 Last Admin: 01/03/17 22:50 Dose: Not Given Fentanyl (Sublimaze) 50 mcg IVPUSH NOW STA Stop: 01/03/17 22:14 Last Admin: 01/03/17 22:15 Dose: 50 mcg Gadobenate Dimeglumine (Multihance) 20 ml IVPUSH ONETIME STA Stop: 01/04/17 08:22 Last Admin: 01/04/17 08:32 Dose: 14 ml Cefepime HCl 2 gm/ Premix 50 mls @ 100 mls/hr IV Q8H [facility] Last Admin: 01/04/17 13:45 Dose: 100 mls/hr Lisinopril (Prinivil) 10 mg PO ONETIME ONE Stop: 01/04/17 21:19 Last Admin: 01/04/17 21:31 Dose: 10 mg Mannitol (Mannitol 25%) 36 gm IV ONETIME ONE Stop: 01/03/17 20:29 Last Admin: 01/03/17 21:49 Dose: 36 gm *Q Meaningful Use (DIS) - VTE *Q VTE Criteria *Q: - Stroke *Q Stroke Criteria *Q: - AMI *Q AMI Criteria *Q:
== END 2017-01-06 15:05 | disposition home health service (06) | DRG 52 ==
LOC: MW.ED 18:26 → MW.MS 23:21 → OBSVTOIN 23:53 → MW.MS 23:53
PROVIDERS: ADMIT Internal Medicine; ATTEND Internal Medicine
DX: G93.6 Cerebral edema (principal); G93.9 Disorder of brain, unspecified; C74.90 Malignant neoplasm of unspecified part of unspecified adrenal gland; F41.8 Other specified anxiety disorders; E03.9 Hypothyroidism, unspecified; I10 Essential (primary) hypertension; Z88.8 Allergy status to other drugs, medicaments and biological substances; Z87.891 Personal history of nicotine dependence; Z79.899 Other long term (current) drug therapy
CPT/HCPCS: 36415; 70450; 70450-26; 70553; 70553-26; 71010; 71010-26; 80053; 80202; 82962; 85025; 96365; 96366; 96368; 96375; 96376; 97162-GP; 99285; 99285-25; A9270-GY; A9577; G0378; J0692; J1100; J1335; J2150; J3010; J3370; J7050; J8540

== ENCOUNTER 2017-01-29 06:50 | Emergency (ER) | payer BC ==
[~2017-01-29 06:50] MED LIST: Succinylcholine 200 MG/10 ML MDV IV ONE
[2017-01-29] MEDS ORDERED: Succinylcholine 200 MG/10 ML MDV IV ONE ×3 (06:54→08:25)
[2017-01-29] MEDS ORDERED: Etomidate 2 MG/ML 20 ML SDV IVPUSH ONE ×2 (07:00→08:21)
[2017-01-29] MEDS ORDERED: Rocuronium 50 MG/5 ML Vial IV ONE (07:00)
--- NOTE | 2017-01-29 07:06 | EDM.PDOC ---
ED HPI GENERAL MEDICAL PROBLEM - General Stated Complaint: POSSIBLE SEIZURE Time Seen by Provider: 01/29/17 07:08 - History of Present Illness INITIAL COMMENTS - FREE TEXT/NARRATIVE: HISTORY AND PHYSICAL: History of present illness: Patient is 46-year-old female history of cerebral neoplasm [place] prior brain surgery at [facility] per EMS she's had either one or 2 brain surgeries and is not a code 3 who presents with altered mental status with snoring respirations and unresponsive Accu-Chek 185 in the field it was confirmed with and patient is full resuscitation upon arrival no access was obtained in field and her PICC line was nonfunctional on arrival here right femoral line was placed by myself and patient was intubated by rapid sequence intubation with a 7.5 ET tube Review of systems: As per history of present illness and below otherwise all systems reviewed and negative. Past medical history: As per history of present illness and as reviewed below otherwise noncontributory. Surgical history: As per history of present illness and as reviewed below otherwise noncontributory. Social history: No reported history of drug or alcohol abuse. Family history: As per history of present illness and as reviewed below otherwise noncontributory. Physical exam: HEENT: Atraumatic, normocephalic, pupils 2-3 mm equal sluggish, negative for conjunctival pallor or scleral icterus, mucous membranes moist, throat clear, neck supple, nontender, trachea midline. Lungs: Coarse bilaterally, breath sounds shallow, chest nontender. Heart: S1S2, regular, negative for clicks, rubs, or JVD. Abdomen: Soft, nondistended, nontender. Negative for masses or hepatosplenomegaly. Pelvis: Stable nontender. Genitourinary: Grossly normal Rectal: Deferred. Extremities: Atraumatic, negative for cords or calf pain. Neurovascular unremarkable. Neuro: Unresponsive does not withdraw to pain no posturing or seizure activity noted Diagnostics: Chest x-ray Therapeutics: Lidocaine 100 mg IV etomidate 40 mg IV succinylcholine 200 mg IV Decadron 10 mg IV 8.5 central line placed right femoral with a sepsis secured with nylon suture Impression: #1 history of intracranial neoplasm #2 altered mental status with ventilatory insufficiency Definitive disposition and diagnosis as appropriate pending reevaluation and review of above. - Related Data Allergies Allergy/AdvReac Type Severity Reaction Status Date / Time bee venom protein (honey bee) Allergy Anaphylactic Verified 01/29/17 07:07 Shock codeine Allergy Rash Verified 01/29/17 07:07 hydrocodone Allergy Other Verified 01/29/17 07:07 hydromorphone Allergy Anaphylactic Verified 01/29/17 07:07 Shock morphine Allergy Rash Verified 01/29/17 07:07 oxycodone Allergy Hives Verified 01/29/17 07:07 tetracycline Allergy Rash Verified 01/29/17 07:07 Home Meds: Home Meds Citalopram Hydrobromide [Celexa] 20 mg PO DAILY 01/03/17 [History] LORazepam 1 mg PO TID PRN 01/03/17 [History] OLANZapine [ZyPREXA] 10 mg PO DAILY 01/03/17 [History] Vancomycin 1 gm IV Q12H 01/03/17 [History] Tapentadol HCl [Nucynta] 50 mg PO Q6HR PRN 01/04/17 [History] Albuterol Sulfate [Proair Hfa] 1 - 2 puff IH Q4H PRN 01/06/17 [History] Benzonatate 200 mg PO Q8H PRN 01/06/17 [History] Dexamethasone 2 mg PO BID #21 tablet 01/06/17 [Rx] Ertapenem [INVanz] 1 gm IV Q24H vial 01/06/17 [Rx] Estrogens, Conjugated [Premarin] 0.625 mg PO DAILY 01/06/17 [History] Gabapentin [Neurontin] 100 mg PO DAILY 01/06/17 [History] Levothyroxine Sodium [Levo-T] 100 mcg PO DAILY 01/06/17 [History] Ondansetron [Zofran ODT] 4 mg PO TID PRN 01/06/17 [History] fentaNYL [Fentanyl] 12 mcg TRDERM Q72H PRN 01/06/17 [History] traMADol HCl [Tramadol HCl] 50 mg PO QID PRN 01/06/17 [History] Past Medical History HEENT History: Reports: None Cardiovascular History: Reports: None Respiratory History: Reports: None Gastrointestinal History: Reports: None Genitourinary History: Reports: None [employer] History: Reports: Musculoskeletal History: Reports: None Neurological History: Reports: None Psychiatric History: Reports: Anxiety, Depression Endocrine/Metabolic History: Reports: None Hematologic History: Reports: None Immunologic History: Reports: None Oncologic (Cancer) History: Reports: Other (See Below) Other Oncologic History: brain cancer ( patient is having tx in [place] since 2010 and was last seen in [place] october of this year ) Dermatologic History: Reports: None - Infectious Disease History Infectious Disease History: Reports: None - Past Surgical History Head Surgeries/Procedures: Reports: None HEENT Surgical History: Reports: None Cardiovascular Surgical History: Reports: None Respiratory Surgical History: Reports: None GI Surgical History: Reports: None Female Surgical History: Reports: None Endocrine Surgical History: Reports: None Neurological Surgical History: Reports: Intracranial Musculoskeletal Surgical History: Reports: None Dermatological Surgical History: Reports: Skin Graft Social & Family History - Family History Family Medical History: Noncontributory - Tobacco Use Smoking Status *Q: Current Every Day Smoker Years of Tobacco use: 30 Packs/Tins Daily: 1 Second Hand Smoke Exposure: No - Caffeine Use Caffeine Use: Reports: Tea - Recreational Drug Use Recreational Drug Use: No ED ROS GENERAL - Review of Systems Review Of Systems: ROS reveals no pertinent complaints other than HPI. ED EXAM, GENERAL - Physical Exam Exam: See Below (See dictation) Course - Vital Signs Text/Narrative:: I discussed case with ER physician at [facility] who accepted patient she will go by your medical - Orders/Labs/Meds Orders: Active Orders 24 hr Category Date Time Status CXR [Chest 1V Frontal] [CR] Stat Exams 01/29/17 06:56 Ordered Departure - Departure Time of Disposition: 07:07 Disposition: DC/Tfer to Acute Hospital 02 Condition: Critical Clinical Impression: Altered mental status, Respiratory failure - Discharge Information - My Orders Last 24 Hours: My Active Orders 01/29/17 06:56 CXR [Chest 1V Frontal] [CR] Stat - Assessment/Plan Last 24 Hours: My Active Orders 01/29/17 06:56 CXR [Chest 1V Frontal] [CR] Stat
[2017-01-29] MEDS ORDERED: Dexamethasone 10 MG/ML SDV ONE (07:12)
[2017-01-29 08:19] VITALS: BP 149/94
[2017-01-29] MEDS ORDERED: Rocuronium 50 MG/5 ML Vial IVPUSH ONE (08:21)
[2017-01-29] MEDS ORDERED: Dexamethasone 4 MG/ML SDV IVPUSH ONE (08:21)
[2017-01-29] MEDS ORDERED: Lidocaine 2% 5 ML SDV IV ONE (08:21)
[2017-01-29] MEDS ORDERED: Sodium Chloride 0.9% 1,000 ML IV ONE ×2 (09:36→09:37)
--- NOTE | 2017-01-30 15:22 | CR ---
EXAM DATE: 01/29/17 PATIENT'S AGE: 46 Patient: ANKIT THOMAS Facility: [place], [place] Site . Site : [id number] Study: XRay Chest [id number]/4/2017 7:06:20 AM Ordering Physician: Gabriel Zimmerman Final Report: INDICATION: Intubation. TECHNIQUE: Portable AP supine view of the chest. COMPARISON: 01/03/2017. FINDINGS: Endotracheal tube is present with the tip approximately 2.5 cm above the saumya. Right upper extremity PICC is redemonstrated, with the tip in the upper aspect of the SVC. Nasogastric tube can be followed past the GE junction with the tip extending off of the field of view. Cardiac, mediastinal and hilar contours are stable and within normal limits. Pulmonary vasculature appears unremarkable. Low lung volumes with linear opacities seen in both perihilar regions as well as the left lung base. No appreciable pleural fluid or pneumothorax on this supine study. IMPRESSION: 1. Endotracheal tube, nasogastric tube, and right upper extremity PICC as described above. 2. Low lung volumes with new perihilar and left basilar opacities, presumably related atelectasis. Infectious or inflammatory process is considered less likely. Recommend followup. Dictated by Rubén Diaz MD @ 01/29/2017 7:14:41 AM Dictated by: Rubén Diaz MD @ 01/29/2017 07:15:22 (Electronic Signature) Report Signed by Proxy. RIMMA
== END 2017-01-29 07:43 ==
LOC: MW.ED 06:50
DX: J96.90 Respiratory failure, unspecified, unspecified whether with hypoxia or hypercapnia (principal); F41.9 Anxiety disorder, unspecified; F32.9 Major depressive disorder, single episode, unspecified; F17.210 Nicotine dependence, cigarettes, uncomplicated; R41.82 Altered mental status, unspecified; Z86.79 Personal history of other diseases of the circulatory system; Z91.030 Bee allergy status; Z88.5 Allergy status to narcotic agent; Z88.6 Allergy status to analgesic agent; Z88.1 Allergy status to other antibiotic agents; Z79.899 Other long term (current) drug therapy
CPT/HCPCS: 36415; 43753; 71010; 80053; 81001; 82150; 83690; 84484; 85025; 85610; 93005; 96361; 96374; 96375; 99291; J0330; J1100; J7040; 99284

== ENCOUNTER 2018-08-28 16:19 | Observation (INO) | payer MEDICARE, BC ==
--- NOTE | 2018-08-28 16:33 | EDM.PDOC ---
ED HPI GENERAL MEDICAL PROBLEM - General Chief Complaint: Neuro Symptoms/Deficits Stated Complaint: AMB Time Seen by Provider: 08/28/18 16:20 - History of Present Illness INITIAL COMMENTS - FREE TEXT/NARRATIVE: HISTORY AND PHYSICAL: History of present illness: The patient is a 47-year-old female with a 10 year history of brain cancer for which she has had craniotomy and is on Vimpat for seizures as well as chronic dexamethasone and presents via EMS after being found by her alongside the sofa where she usually lays and sleeps and has not been seen since 8 AM. According to EMS they were concerned as she seemed to have diminished mental status and was not moving her left side. During the course of EMS evaluation she was noted to be moving her left leg but not moving the left arm very much. EMS is familiar with this patient and says that she usually spends most of her day on the sofa and that she recently was treated with antibiotics for a skull/ scalp infection. The patient's last known well time was 7 AM when the left for work and when he came home is when he found her. The patient offers no history here but is moving all extremities with the exception of the left upper extremity but is nonverbal. She is exhibiting purposeful movement and a stroke code was called in light of the presenting symptoms. We are waiting has been arrival to get more information as the patient does not offer any history here in the ED nor does she have any complaints. Accu-Chek was performed by EMS and was within normal limits area the patient was home alone so exactly when the onset of symptoms occurred is unsure and it is unclear if the patient had a seizure. The patient did have loss of urine. According to EMS the patient is on fentanyl patches but they did not identify any patches on her body Please see below for more information from the Review of systems: As per history of present illness and below otherwise all systems reviewed and negative. Past medical history: As per history of present illness and as reviewed below otherwise noncontributory. Surgical history: As per history of present illness and as reviewed below otherwise noncontributory. Social history: No reported history of drug or alcohol abuse. Family history: As per history of present illness and as reviewed below otherwise noncontributory. Physical exam: Gen: Well-developed well-nourished female who is nontoxic and vital signs are noted by me. She is exhibiting purposeful behavior trying to cover herself up as we are undressing her. She is moving all extremities with the exception of the left upper extremity but tries to initiate movement at the shoulder. HEENT: The patient has a large scar on the frontal area of her skull scalp with some crusting and some areas of minimal drainage and there is surrounding erythema in this region. There is a frontal edema extending from this wound on the scalp down to the for head and in the periorbital areas which I am unsure if it is new or old. There are no bony defects appreciated. The mucosa is very dry. She is, normocephalic, pupils are midrange and sluggish and initially when I pop her eyelids open her eyes are deviated to the right but then come to midline and throughout the course of my evaluation she began to spontaneously open her eyes and track. There is no,r conjunctival pallor or scleral icterus, mucous membranes very dry, throat clear, neck supple, nontender, trachea midline. There is no gross thyromegaly and there are no palpable bony deformities of the facial bones that are appreciated and no nasal bleeding. There is an old well-healed scar at her left neck. Lungs: Diminished breath sounds with poor effort throughout but there is no work of breathing wheezing or stridor. breath sounds equal bilaterally, chest nontender. There is a port appreciated at her left upper chest wall Heart: S1S2, regular, negative for clicks, rubs, or JVD. Abdomen: Soft, nondistended, nontender. Bowel sounds are hypoactive and there is a well-healed midline infraumbilical scar appreciated and multiple punctate scars seen on the abdominal wall. Negative for masses or hepatosplenomegaly. Pelvis: Stable nontender. Genitourinary: Deferred. Rectal: Deferred. Extremities: Atraumatic appearing without any soft tissue injuries swelling defects or deformities throughout pedal edema or leg asymmetry, vascular is grossly unremarkable. More specifically at the left upper extremity there is no compartment swelling ecchymosis erythema or bony deformities appreciated. There is an extensive old scar seen on the volar surface of her right wrist and pulses are appreciated if faint on palpation and there is good cap refill and normal temperature in the distal hand. There is no finger or hand swelling appreciated nor any color changes appreciated. Neuro: Patient initially was keeping her eyes closed but throughout the course of my evaluation opened her eyes spontaneously and was tracking and moving all extremities with the exception of the left upper extremity. She appears to initiate movement at the shoulder and trapezius area but there is no movement from mid humerus to the hand that is appreciated by me on initial evaluation. Her left lower extremity is equal to the right and there is purposeful movement trying to cover herself up and pulled a blanket on. She is currently nonverbal. Sensory is difficult to evaluate at this time. Tone appears normal throughout extremities with the exception of the left upper extremity where there is diminished tone. Diagnostics: EKG CBC CMP INR troponin TSH prolactin UA CT scan of the head one view chest x- ray lactic acid and NIH stroke scale CPK, x-ray of humerus and forearm wound culture from scalp, blood cultures 2 Therapeutics: IV O2 monitor IV fluids vancomycin Rocephin As the last known well time was 8 AM and the patient has a long-standing history of brain cancer with brain surgeries I do not feel that she is a candidate for TPA. has now arrived to the ED and I will further discuss with him what her current care plan and regimen has been about as well as today' s events. The has now arrived at 1645 and says that he last saw her about 6:15 AM and his children left about 8 PM and she was asleep on the sofa according to him she is "cancer free" and has not had chemotherapy or radiation for over a year. She has not had seizure activity for over a year as well but is on anticonvulsants. She was on antibiotics for a wound infection to her scalp skull but finished those about 2-3 weeks ago and it was all done as an outpatient. He said that she got an infection in her old scalp wound because of all of the treatment she has received and the poor healing. She follows with Dr. Romero in our family practice clinic as well as a physician in [place]. says that he is power of prosecuting attorney along with the patient's mother and he is unsure of her CODE STATUS but believes that she would not want extenuating measures such as intubation performed. He will discuss this with the mom and give me an answer. According to the she has been not taking care of herself and pretty much spending all of her time on the sofa sleeping. He said that until recently she has not been cleaning herself and has had very poor hygiene and she just recently took a shower after about 2 weeks. He said she has had no energy no motivation. He said that when he found her on the floor next to the sofa she was laying on her left side. He said this is the same sofa that she has spent the majority of her time on. The is aware that I am unsure of what exactly happened throughout the course of the day and how long she has been lying on the floor. From appearances with the soft tissue swelling of her face/edema of her face and her poor mucous membrane hydration has been for quite some time. I will proceed to order an x-ray of the left humerus and left forearm as she may have fallen on that and I told the that potentially a laying for prolonged period of time on the extremity she may have caused a neurapraxia as the left lower extremity is moving. It is still unclear to me what was the causative problem of today's events. 1655: Patient is agitated and trying to take off her oxygen as well as her pulse ox and prefers to lay on her right side. She is exhibiting purposeful movement but is again nonverbal even with the speaking to her. She has limited movement of her left upper extremity but is moving her left lower extremity. O2 sats are in the low 90s on 100% nonrebreather. says that her for head and frontal scalp does look more erythematous and swollen than usual but the wound itself is only slightly more weeping and it has been. He does tell me that it has not looked good even though she has finished antibiotics. She is currently maintaining her airway but is aware of my concerns and will contact her mother and decide about how invasive we are going to be as it becomes necessary. 1720: Family friend who is also one of our nurses here in the ED is now at bedside and tells me that the patient was in hospice when she was in [place] and when she returned here to [place] she was no longer in hospice. According to her understanding she was told by the [facility] 6-7 months ago that there was no further treatment that they could give her for this problem. This is contrary to what the is saying that she is "cancer free". Discuss with and family friend at bedside at length attention options in light of the CT scan results. At this point the patient can either remain here for comfort care and minimal medical care such as IV antibiotics and pain management or a can transfer her to either or [place] pending the family's preference and prior care and management. They're currently discussing that. At this point they do not want anything invasive such as intubation but I did warn them that we do not have consult such as infectious disease or neurosurgery here to manage some of these symptoms and problems area Patient currently is showing improvement of her blood pressure and heart rate with IV fluids which are still infusing. After multiple family conversations the and the mother of this patient have decided that they do not want transfer to any other facility for more intensive care such as infectious disease consult neurosurgery involvement. The is aware of the lab abnormalities including the CPK and troponin as well as a WBC count liver function tests and the CT scan findings. They want to pursue comfort measures but at this point they are happy that we did give doses of antibiotics and they would like to discuss with the hospitalist any further medical management and the care plan going forward. They're aware that we do not have these consultants here and that by not transferring they are accepting of only basic medical management and then comfort measures going forward. says that this is the care plan that the patient would want and that he is agreeing to. 1925: This discuss with Dr. Lou who accepts the patient for admission and would like her to be admitted as an observation. Critical care time excluding procedures:40min Impression: Scalp/frontal bone infection, osteomyelitis; altered level of consciousness etiology unclear rule out CVA; prolonged immobilization with rhabdomyolysis and elevated troponin Definitive disposition and diagnosis as appropriate pending reevaluation and review of above. - Related Data Allergies Allergy/AdvReac Type Severity Reaction Status Date / Time bee venom protein (honey bee) Allergy Anaphylactic Verified 01/29/17 07:07 Shock codeine Allergy Rash Verified 01/29/17 07:07 hydrocodone Allergy Other Verified 01/29/17 07:07 hydromorphone Allergy Anaphylactic Verified 01/29/17 07:07 Shock morphine Allergy Rash Verified 01/29/17 07:07 oxycodone Allergy Hives Verified 01/29/17 07:07 tetracycline Allergy Rash Verified 01/29/17 07:07 Home Meds: Home Meds Citalopram Hydrobromide [Celexa] 20 mg PO DAILY 01/03/17 [History] LORazepam 1 mg PO TID PRN 01/03/17 [History] OLANZapine [ZyPREXA] 10 mg PO DAILY 01/03/17 [History] Vancomycin 1 gm IV Q12H 01/03/17 [History] Tapentadol HCl [Nucynta] 50 mg PO Q6HR PRN 01/04/17 [History] Albuterol Sulfate [Proair Hfa] 1 - 2 puff IH Q4H PRN 01/06/17 [History] Benzonatate 200 mg PO Q8H PRN 01/06/17 [History] Dexamethasone 2 mg PO BID #21 tablet 01/06/17 [Rx] Ertapenem [INVanz] 1 gm IV Q24H vial 01/06/17 [Rx] Estrogens, Conjugated [Premarin] 0.625 mg PO DAILY 01/06/17 [History] Gabapentin [Neurontin] 100 mg PO DAILY 01/06/17 [History] Levothyroxine Sodium [Levo-T] 100 mcg PO DAILY 01/06/17 [History] Ondansetron [Zofran ODT] 4 mg PO TID PRN 01/06/17 [History] fentaNYL [Fentanyl] 12 mcg TRDERM Q72H PRN 01/06/17 [History] traMADol HCl [Tramadol HCl] 50 mg PO QID PRN 01/06/17 [History] Past Medical History HEENT History: Reports: None Cardiovascular History: Reports: None Respiratory History: Reports: None Gastrointestinal History: Reports: None Genitourinary History: Reports: None [employer] History: Reports: Musculoskeletal History: Reports: None Neurological History: Reports: None Psychiatric History: Reports: Anxiety, Depression Endocrine/Metabolic History: Reports: None Hematologic History: Reports: None Immunologic History: Reports: None Oncologic (Cancer) History: Reports: Other (See Below) Other Oncologic History: brain cancer ( patient is having tx in [place] since 2010 and was last seen in [place] october of this year ) Dermatologic History: Reports: None - Infectious Disease History Infectious Disease History: Reports: None - Past Surgical History Head Surgeries/Procedures: Reports: None HEENT Surgical History: Reports: None Cardiovascular Surgical History: Reports: None Respiratory Surgical History: Reports: None GI Surgical History: Reports: None Female Surgical History: Reports: None Endocrine Surgical History: Reports: None Neurological Surgical History: Reports: Intracranial Musculoskeletal Surgical History: Reports: None Dermatological Surgical History: Reports: Skin Graft Social & Family History - Family History Family Medical History: Noncontributory - Caffeine Use Caffeine Use: Reports: Tea ED ROS GENERAL - Review of Systems Review Of Systems: ROS reveals no pertinent complaints other than HPI. ED EXAM, GENERAL - Physical Exam Exam: See Below (see dictation) Course - Vital Signs Last Recorded V/S: Last Vital Signs Temp 37.4 C 08/28/18 19:09 Pulse 118 H 08/28/18 19:09 Resp 18 08/28/18 19:09 BP 114/60 08/28/18 19:09 Pulse Ox 90 L 08/28/18 19:09 - Orders/Labs/Meds Orders: Active Orders 24 hr Category Date Time Status Patient Status [ADT] Stat ADT 08/28/18 19:24 Ordered Cardiac Monitoring [RC] . DIRECTED Care 08/28/18 16:30 Active Communication Order [RC] STAT Care 08/28/18 16:32 Active EKG Documentation Completion [RC] STAT Care 08/28/18 16:30 Active Oxygen Therapy, ED [RC] ASDIRECTED Care 08/28/18 16:30 Active Pulse Oximetry [RC] ASDIRECTED Care 08/28/18 16:30 Active CULTURE BLOOD [BC] Stat Lab 08/28/18 18:22 Results CULTURE BLOOD [BC] Stat Lab 08/28/18 18:33 Results CULTURE WOUND [RM] Stat Lab 08/28/18 17:50 Received UA RFX VICKI AND CULT IF INDIC [URIN] Stat Lab 08/28/18 16:48 Ordered Sodium Chloride 0.9% [Normal Saline] 1,000 ml Med 08/28/18 18:43 Active IV STAT Blood Culture x2 Reflex Set [OM.PC] Stat Oth 08/28/18 18:00 Ordered Medication Orders Sodium Chloride (Normal Saline) 1,000 mls @ 999 mls/hr IV STAT ONE Stop: 08/28/18 19:43 Last Admin: 08/28/18 19:08 Dose: 999 mls/hr Labs: Laboratory Tests 08/28/18 08/28/18 08/28/18 Range/Units 17:33 17:33 17:33 WBC 14.88 H (4.0-11.0) K/uL RBC 5.11 (4.30-5.90) M/uL Hgb 14.4 (12.0-16.0) g/dL Hct 42.7 (36.0-46.0) % MCV 83.6 (80.0-98.0) fL MCH 28.2 (27.0-32.0) pg MCHC 33.7 (31.0-37.0) g/dL RDW Std Deviation 48.5 (28.0-62.0) fl RDW Coeff of Danielle 16 H (11.0-15.0) % Plt Count 250 (150-400) K/uL MPV 9.20 (7.40-12.00) fL Add Manual Diff YES Neutrophils % (Manual) 67 (48.0-80.0) % Band Neutrophils % 13 % Lymphocytes % (Manual) 15 L (16.0-40.0) % Monocytes % (Manual) 5 (0.0-15.0) % Nucleated RBC % 0.0 /100WBC Absolute Seg Neuts 10.0 H (1.4-5.7) Band Neutrophils # 1.9 Lymphocytes # (Manual) 2.2 (0.6-2.4) Monocytes # (Manual) 0.7 (0.0-0.8) Nucleated RBCs # 0 K/uL INR 1.03 Lactate (0.20-2.00) mmol/L Sodium 139 (136-145) mmol/L Potassium 3.5 (3.5-5.1) mmol/L Chloride 104 (98-107) mmol/L Carbon Dioxide 24.2 (21.0-32.0) mmol/L BUN 12 (7.0-18.0) mg/dL Creatinine 1.7 H (0.6-1.0) mg/dL Est Cr Clr Drug Dosing TNP Estimated GFR (MDRD) 31.9 ml/min Glucose 129 H (74-106) mg/dL Calcium 9.2 (8.5-10.1) mg/dL Total Bilirubin 0.5 (0.2-1.0) mg/dL AST 314 H (15-37) IU/L ALT 149 H (14-63) IU/L Alkaline Phosphatase 201 H (46-116) U/L Creatine Kinase (26-308) U/L Troponin I 0.260 H* (0.000-0.056) ng/mL Total Protein 7.0 (6.4-8.2) g/dL Albumin 2.6 L (3.4-5.0) g/dL Globulin 4.4 H (2.6-4.0) g/dL Albumin/Globulin Ratio 0.6 L (0.9-1.6) TSH 3rd Generation 1.26 (0.36-3.74) uIU/mL Prolactin 16.2 ng/mL 08/28/18 08/28/18 Range/Units 17:33 17:33 WBC (4.0-11.0) K/uL RBC (4.30-5.90) M/uL Hgb (12.0-16.0) g/dL Hct (36.0-46.0) % MCV (80.0-98.0) fL MCH (27.0-32.0) pg MCHC (31.0-37.0) g/dL RDW Std Deviation (28.0-62.0) fl RDW Coeff of Danielle (11.0-15.0) % Plt Count (150-400) K/uL MPV (7.40-12.00) fL Add Manual Diff Neutrophils % (Manual) (48.0-80.0) % Band Neutrophils % % Lymphocytes % (Manual) (16.0-40.0) % Monocytes % (Manual) (0.0-15.0) % Nucleated RBC % /100WBC Absolute Seg Neuts (1.4-5.7) Band Neutrophils # Lymphocytes # (Manual) (0.6-2.4) Monocytes # (Manual) (0.0-0.8) Nucleated RBCs # K/uL INR Lactate 3.3 H (0.20-2.00) mmol/L Sodium (136-145) mmol/L Potassium (3.5-5.1) mmol/L Chloride (98-107) mmol/L Carbon Dioxide (21.0-32.0) mmol/L BUN (7.0-18.0) mg/dL Creatinine (0.6-1.0) mg/dL Est Cr Clr Drug Dosing Estimated GFR (MDRD) ml/min Glucose (74-106) mg/dL Calcium (8.5-10.1) mg/dL Total Bilirubin (0.2-1.0) mg/dL AST (15-37) IU/L ALT (14-63) IU/L Alkaline Phosphatase (46-116) U/L Creatine Kinase 6892 H (26-308) U/L Troponin I (0.000-0.056) ng/mL Total Protein (6.4-8.2) g/dL Albumin (3.4-5.0) g/dL Globulin (2.6-4.0) g/dL Albumin/Globulin Ratio (0.9-1.6) TSH 3rd Generation (0.36-3.74) uIU/mL Prolactin ng/mL Meds: Medications Generic Name Dose Route Start Last Admin Trade Name Freq PRN Reason Stop Dose Admin Sodium Chloride 1,000 mls @ 999 mls/hr 08/28/18 18:43 08/28/18 19:08 Normal Saline IV 08/28/18 19:43 999 mls/hr STAT ONE Administration Discontinued Medications Generic Name Dose Route Start Last Admin Trade Name Freq PRN Reason Stop Dose Admin Sodium Chloride 500 mls @ 999 mls/hr 08/28/18 16:45 Normal Saline IV STAT RIVER Sodium Chloride 1,000 mls @ 999 mls/hr 08/28/18 16:56 08/28/18 17:17 Normal Saline IV 08/28/18 17:56 999 mls/hr STAT ONE Administration Ceftriaxone Sodium/Dextrose 2 50 mls @ 100 mls/hr 08/28/18 17:32 08/28/18 17: 45 gm/ Premix IV 08/28/18 18:01 100 mls/hr ONETIME ONE Administration Vancomycin HCl 1 gm/ Sodium 250 mls @ 250 mls/hr 08/28/18 17:32 08/28/18 19: 08 Chloride IV 08/28/18 18:31 250 mls/hr ONETIME ONE Administration Sodium Chloride Confirm 08/28/18 19:05 Normal Saline Administered 08/28/18 19:06 Dose 250 mls @ as directed .ROUTE .STK-MED ONE Vancomycin HCl Confirm 08/28/18 19:04 08/28/18 19:08 Vancocin Administered 08/28/18 19:05 Not Given Dose 1 gm .ROUTE .STK-MED ONE Departure - Departure Time of Disposition: 19:25 Disposition: Refer to Observation Condition: Fair Clinical Impression: Elevated troponin Osteomyelitis Qualifiers: Osteomyelitis type: unspecified type Osteomyelitis location: unspecified site Qualified Code(s): M86.9 - Osteomyelitis, unspecified Rhabdomyolysis Qualifiers: Rhabdomyolysis type: traumatic Encounter type: initial encounter Qualified Code (s): T79.6XXA - Traumatic ischemia of muscle, initial encounter Altered mental status Qualifiers: Altered mental status type: unspecified Qualified Code(s): R41.82 - Altered mental status, unspecified - Discharge Information Referrals: Cliff Romero MD [Primary Care Provider] - Forms: ED Department Discharge - My Orders Last 24 Hours: My Active Orders 08/28/18 16:30 Cardiac Monitoring [RC] . DIRECTED EKG Documentation Completion [RC] STAT Oxygen Therapy, ED [RC] ASDIRECTED Pulse Oximetry [RC] ASDIRECTED 08/28/18 16:32 Communication Order [RC] STAT 08/28/18 16:48 UA RFX VICKI AND CULT IF INDIC [URIN] Stat 08/28/18 17:50 CULTURE WOUND [RM] Stat 08/28/18 18:00 Blood Culture x2 Reflex Set [OM.PC] Stat 08/28/18 18:22 CULTURE BLOOD [BC] Stat 08/28/18 18:33 CULTURE BLOOD [BC] Stat 08/28/18 18:43 Sodium Chloride 0.9% [Normal Saline] 1,000 ml IV STAT 08/28/18 19:24 Patient Status [ADT] Stat - Assessment/Plan Last 24 Hours: My Active Orders 08/28/18 16:30 Cardiac Monitoring [RC] . DIRECTED EKG Documentation Completion [RC] STAT Oxygen Therapy, ED [RC] ASDIRECTED Pulse Oximetry [RC] ASDIRECTED 08/28/18 16:32 Communication Order [RC] STAT 08/28/18 16:48 UA RFX VICKI AND CULT IF INDIC [URIN] Stat 08/28/18 17:50 CULTURE WOUND [RM] Stat 08/28/18 18:00 Blood Culture x2 Reflex Set [OM.PC] Stat 08/28/18 18:22 CULTURE BLOOD [BC] Stat 08/28/18 18:33 CULTURE BLOOD [BC] Stat 08/28/18 18:43 Sodium Chloride 0.9% [Normal Saline] 1,000 ml IV STAT 08/28/18 19:24 Patient Status [ADT] Stat
[2018-08-28] MEDS ORDERED: Sodium Chloride 0.9% 500 ML IV SCH (16:45)
[2018-08-28] MEDS ORDERED: Sodium Chloride 0.9% 1,000 ML IV ONE ×2 (16:56→18:43)
--- NOTE | 2018-08-28 17:28 | CT ---
INDICATION: 47-year-old female. Possible CVA. Prior surgery. TECHNIQUE: CT images from foramen magnum to vertex were obtained without contrast and axial sagittal and coronal reformatted images are obtained. FINDINGS: No prior scans available for comparison at this time. Postoperative changes with a bifrontal craniotomy. There are also postsurgical changes within the nasal fossa cribriform plate and ethmoid sinuses. There is dural thickening beneath the frontal craniotomy flap and areas of low density throughout the bilateral frontal lobe white matter with associated volume loss. Ex vacuo dilatation of the frontal horns of the lateral ventricles. The frontal bone flap is abnormal with areas of demineralization in the rotations of the inner table and outer table associated with fixation plate and screws. There is also a small amount of gas immediately beneath the inner table of the bone flap. There is swelling of the adjacent scalp. The appearance is suggestive of osteomyelitis of the frontal bone flap. No convincing subdural or epidural fluid collection. No midline shift. Areas of encephalomalacia also noted in the right temporal lobe. IMPRESSION: 1. Mature bifrontal craniotomy flap with erosive bone changes, bone demineralization, adjacent scalp swelling and small foci of gas suspicious for osteomyelitis/infection. 2. Postsurgical changes also include resection ethmoid sinuses medial orbital roy and floor of the frontal cranial fossa. 3. Cerebral and cerebellar atrophy most prominent in the bilateral frontal lobes and right temporal lobe. No acute intracranial hemorrhage or mass effect. 4. Prior CT or MRI imaging would be useful for comparison if available. Alternatively an MRI examination with gadolinium contrast and diffusion weighted imaging would be useful. Please note that all CT scans at this facility use dose modulation, iterative reconstruction, and/or weight-based dosing when appropriate to reduce radiation dose to as low as reasonably achievable. Dictated by Jenaro Jackson MD @ Aug 28 2018 5:15PM Signed by Dr. Jenaro Jackson @ Aug 28 2018 5:26PM
[2018-08-28] MEDS ORDERED: cefTRIAXone 2 GM in Premix Bag 1 BAG IV ONE (17:32)
--- NOTE | 2018-08-28 17:51 | CR ---
INDICATION: [id number] TECHNIQUE: Chest 1 views COMPARISON: January 29, 2017 FINDINGS: Cardiovascular and mediastinum: Right-sided port catheter is present. Heart size and pulmonary vasculature are normal. Lungs and pleural spaces: Lungs are clear. No sign of infiltrate or mass. No sign of pleural effusion. No pneumothorax. Bones and soft tissues: No significant findings. IMPRESSION: Unremarkable chest. No finding to explain shortness of breath. Dictated by Erwin Montero MD @ Aug 28 2018 5:47PM Signed by Dr. Erwin Montero @ Aug 28 2018 5:48PM
--- NOTE | 2018-08-28 17:55 | CR ---
INDICATION: Trauma. Patient fell. COMPARISON: none TECHNIQUE: Two-view left forearm FINDINGS: The wrist and elbow are anatomically aligned. There is no evidence of fracture, erosion or intrinsic bone lesion within the radius or ulna. The soft tissues appear normal. IMPRESSION: No fracture identified Dictated by Erasmo Garcia MD @ Aug 28 2018 5:52PM Signed by Dr. Erasmo Garcia @ Aug 28 2018 5:54PM
--- NOTE | 2018-08-28 17:57 | CR ---
INDICATION: Trauma. Patient fell. COMPARISON: none TECHNIQUE: Two-view left humerus FINDINGS: The glenohumeral joint and elbow are anatomically aligned. There is no evidence of a humeral fracture, erosion or intrinsic bone lesion. The soft tissues appear normal. IMPRESSION: No fracture identified Dictated by Erasmo Garcia MD @ Aug 28 2018 5:54PM Signed by Dr. Erasmo Garcia @ Aug 28 2018 5:56PM
[2018-08-28 18:13] LABS: CHLORIDE,CL 104 mmol/L (98-107); SODIUM,NA 139 mmol/L (136-145)
[2018-08-28] MEDS ORDERED: Vancomycin 1 GM AdvVial ONE (19:04)
[2018-08-28] MEDS ORDERED: Sodium Chloride 0.9% 250 ML ONE (19:05)
[2018-08-28] MEDS ORDERED: Morphine 2 MG/ML Syringe IVPUSH PRN (20:51)
[2018-08-28] MEDS: Sodium Chloride 0.9% 1,000 ML IV SCH (20:56)
[2018-08-28] MEDS: LORazepam 2 MG/ML SDV IVPUSH PRN (21:21)
[2018-08-28] MEDS: fentaNYL 100 MCG/2 ML SDV IVPUSH PRN (22:20)
[2018-08-29] MEDS: LORazepam 2 MG/ML SDV IVPUSH PRN ×5 (01:03→23:20)
[2018-08-29] MEDS: fentaNYL 100 MCG/2 ML SDV IVPUSH PRN ×5 (04:30→23:19)
--- NOTE | 2018-08-29 07:06 | PCM.HP ---
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 The patient had presented to the emergency department primarily with altered mental status. She was brought in by EMS. The patient had been found down on the floor after an approximately 8 hour period. The patient is mentally altered and she is not able to participate in her history and physical in any meaningful way. The patient's brother is with her and has been able to supply limited information. Most of the information obtained has been through previous medical records. Onset of Symptoms: Reports: Unknown/Unsure Duration of Symptoms: Reports: Day(s): - Related Data Allergies/Adverse Reactions: Allergies Allergy/AdvReac Type Severity Reaction Status Date / Time bee venom protein (honey bee) Allergy Anaphylactic Verified 01/29/17 07:07 Shock codeine Allergy Rash Verified 01/29/17 07:07 hydrocodone Allergy Other Verified 01/29/17 07:07 hydromorphone Allergy Anaphylactic Verified 01/29/17 07:07 Shock morphine Allergy Rash Verified 01/29/17 07:07 oxycodone Allergy Hives Verified 01/29/17 07:07 tetracycline Allergy Rash Verified 01/29/17 07:07 tape Allergy Rash Uncoded 08/28/18 20:51 Home Medications: Home Meds Citalopram Hydrobromide [Celexa] 20 mg PO DAILY 01/03/17 [History] LORazepam 1 mg PO TID PRN 01/03/17 [History] OLANZapine [ZyPREXA] 10 mg PO DAILY 01/03/17 [History] Vancomycin 1 gm IV Q12H 01/03/17 [History] Tapentadol HCl [Nucynta] 50 mg PO Q6HR PRN 01/04/17 [History] Albuterol Sulfate [Proair Hfa] 1 - 2 puff IH Q4H PRN 01/06/17 [History] Benzonatate 200 mg PO Q8H PRN 01/06/17 [History] Dexamethasone 2 mg PO BID #21 tablet 01/06/17 [Rx] Ertapenem [INVanz] 1 gm IV Q24H vial 01/06/17 [Rx] Estrogens, Conjugated [Premarin] 0.625 mg PO DAILY 01/06/17 [History] Gabapentin [Neurontin] 100 mg PO DAILY 01/06/17 [History] Levothyroxine Sodium [Levo-T] 100 mcg PO DAILY 01/06/17 [History] Ondansetron [Zofran ODT] 4 mg PO TID PRN 01/06/17 [History] fentaNYL [Fentanyl] 12 mcg TRDERM Q72H PRN 01/06/17 [History] traMADol HCl [Tramadol HCl] 50 mg PO QID PRN 01/06/17 [History] Past Medical History HEENT History: Reports: None Cardiovascular History: Reports: None Respiratory History: Reports: None Gastrointestinal History: Reports: None Genitourinary History: Reports: None 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: Musculoskeletal History: Reports: None Neurological History: Reports: None Psychiatric History: Reports: Anxiety, Depression Endocrine/Metabolic History: Reports: None Hematologic History: Reports: None Immunologic History: Reports: None Oncologic (Cancer) History: Reports: Other (See Below) Other Oncologic History: brain cancer ( patient is having tx in [place] since 2010 and was last seen in [place] october 2017 Dermatologic History: Reports: None - Infectious Disease History Infectious Disease History: Reports: None - Past Surgical History Head Surgeries/Procedures: Reports: Craniotomy HEENT Surgical History: Reports: None Cardiovascular Surgical History: Reports: None Respiratory Surgical History: Reports: None GI Surgical History: Reports: None Female Surgical History: Reports: None Endocrine Surgical History: Reports: None Neurological Surgical History: Reports: Intracranial Musculoskeletal Surgical History: Reports: None Dermatological Surgical History: Reports: Skin Graft Social & Family History - Family History Family Medical History: Noncontributory - Tobacco Use Smoking Status *Q: Heavy Tobacco Smoker Years of Tobacco use: 1 Packs/Tins Daily: 3 - Caffeine Use Caffeine Use: Reports: None - Recreational Drug Use Recreational Drug Use: No - Living Situation & Occupation Living situation: Reports: , with Significant Other Occupation: Unemployed H&P Review of Systems - Review of Systems: Review Of Systems: Unable To Obtain Exam - Exam Exam: See Below - Vital Signs Vital Signs: Last Vital Signs Temp 37.3 C 08/29/18 04:00 Pulse 111 H 08/29/18 04:00 Resp 18 08/29/18 04:00 BP 130/81 08/29/18 04:00 Pulse Ox 90 L 08/29/18 04:00 Weight: 70.3 kg - Exam Quality Assessment: No: Supplemental Oxygen General: No: Alert, Oriented HEENT: Other (Frontal head wound dressed, clean and dry). No: Conjunctiva Clear (Patient resisting opening eyes, facial edema noted), EACs Clear, Mucosa Moist & [place] (Dry) Neck: Supple, Trachea Midline Lungs: Normal Respiratory Effort, Crackles (Bibasilar) Cardiovascular: Regular Rate, Regular Rhythm GI/Abdominal Exam: Normal Bowel Sounds, No Distention (Female) Exam: Deferred Rectal (Female) Exam: Deferred Back Exam: Normal Inspection Extremities: No Pedal Edema, Normal Capillary Refill Skin: Warm, Dry, Intact Neurological: No: Cranial Nerves Intact (Altered mental status) Psychiatric: No: Alert, Normal Affect - Patient Data Lab Results Last 24 hrs: Laboratory Results - last 24 hr 08/28/18 08/28/18 08/28/18 Range/Units 17:33 17:33 17:33 WBC 14.88 H (4.0-11.0) K/uL RBC 5.11 (4.30-5.90) M/uL Hgb 14.4 (12.0-16.0) g/dL Hct 42.7 (36.0-46.0) % MCV 83.6 (80.0-98.0) fL MCH 28.2 (27.0-32.0) pg MCHC 33.7 (31.0-37.0) g/dL RDW Std Deviation 48.5 (28.0-62.0) fl RDW Coeff of Danielle 16 H (11.0-15.0) % Plt Count 250 (150-400) K/uL MPV 9.20 (7.40-12.00) fL Add Manual Diff YES Neutrophils % (Manual) 67 (48.0-80.0) % Band Neutrophils % 13 % Lymphocytes % (Manual) 15 L (16.0-40.0) % Monocytes % (Manual) 5 (0.0-15.0) % Nucleated RBC % 0.0 /100WBC Absolute Seg Neuts 10.0 H (1.4-5.7) Band Neutrophils # 1.9 Lymphocytes # (Manual) 2.2 (0.6-2.4) Monocytes # (Manual) 0.7 (0.0-0.8) Nucleated RBCs # 0 K/uL INR 1.03 Lactate (0.20-2.00) mmol/L Sodium 139 (136-145) mmol/L Potassium 3.5 (3.5-5.1) mmol/L Chloride 104 (98-107) mmol/L Carbon Dioxide 24.2 (21.0-32.0) mmol/L BUN 12 (7.0-18.0) mg/dL Creatinine 1.7 H (0.6-1.0) mg/dL Est Cr Clr Drug Dosing TNP Estimated GFR (MDRD) 31.9 ml/min Glucose 129 H (74-106) mg/dL Calcium 9.2 (8.5-10.1) mg/dL Total Bilirubin 0.5 (0.2-1.0) mg/dL AST 314 H (15-37) IU/L ALT 149 H (14-63) IU/L Alkaline Phosphatase 201 H (46-116) U/L Creatine Kinase (26-308) U/L Troponin I 0.260 H* (0.000-0.056) ng/mL Total Protein 7.0 (6.4-8.2) g/dL Albumin 2.6 L (3.4-5.0) g/dL Globulin 4.4 H (2.6-4.0) g/dL Albumin/Globulin Ratio 0.6 L (0.9-1.6) TSH 3rd Generation 1.26 (0.36-3.74) uIU/mL Prolactin 16.2 ng/mL Urine Color Urine Appearance Urine pH (5.0-8.0) Ur Specific Harrington (1.001-1.035) Urine Protein (NEGATIVE) mg/dL Urine Glucose (UA) (NEGATIVE) mg/dL Urine Ketones (NEGATIVE) mg/dL Urine Occult Blood (NEGATIVE) Urine Nitrite (NEGATIVE) Urine Bilirubin (NEGATIVE) Urine Urobilinogen (<2.0) EU/dL Ur Leukocyte Esterase (NEGATIVE) Urine RBC (0-2/HPF) Urine WBC (0-5/HPF) Ur Epithelial Cells (NONE-FEW) Amorphous Sediment (NEGATIVE) Urine Bacteria (NEGATIVE) Urine Mucus (NONE-MOD) 08/28/18 08/28/18 08/28/18 Range/Units 17:33 17:33 19:20 WBC (4.0-11.0) K/uL RBC (4.30-5.90) M/uL Hgb (12.0-16.0) g/dL Hct (36.0-46.0) % MCV (80.0-98.0) fL MCH (27.0-32.0) pg MCHC (31.0-37.0) g/dL RDW Std Deviation (28.0-62.0) fl RDW Coeff of Danielle (11.0-15.0) % Plt Count (150-400) K/uL MPV (7.40-12.00) fL Add Manual Diff Neutrophils % (Manual) (48.0-80.0) % Band Neutrophils % % Lymphocytes % (Manual) (16.0-40.0) % Monocytes % (Manual) (0.0-15.0) % Nucleated RBC % /100WBC Absolute Seg Neuts (1.4-5.7) Band Neutrophils # Lymphocytes # (Manual) (0.6-2.4) Monocytes # (Manual) (0.0-0.8) Nucleated RBCs # K/uL INR Lactate 3.3 H (0.20-2.00) mmol/L Sodium (136-145) mmol/L Potassium (3.5-5.1) mmol/L Chloride (98-107) mmol/L Carbon Dioxide (21.0-32.0) mmol/L BUN (7.0-18.0) mg/dL Creatinine (0.6-1.0) mg/dL Est Cr Clr Drug Dosing Estimated GFR (MDRD) ml/min Glucose (74-106) mg/dL Calcium (8.5-10.1) mg/dL Total Bilirubin (0.2-1.0) mg/dL AST (15-37) IU/L ALT (14-63) IU/L Alkaline Phosphatase (46-116) U/L Creatine Kinase 6892 H (26-308) U/L Troponin I (0.000-0.056) ng/mL Total Protein (6.4-8.2) g/dL Albumin (3.4-5.0) g/dL Globulin (2.6-4.0) g/dL Albumin/Globulin Ratio (0.9-1.6) TSH 3rd Generation (0.36-3.74) uIU/mL Prolactin ng/mL Urine Color YELLOW Urine Appearance CLEAR Urine pH 6.5 (5.0-8.0) Ur Specific Harrington 1.020 (1.001-1.035) Urine Protein 30 H (NEGATIVE) mg/dL Urine Glucose (UA) NEGATIVE (NEGATIVE) mg/dL Urine Ketones NEGATIVE (NEGATIVE) mg/dL Urine Occult Blood LARGE H (NEGATIVE) Urine Nitrite NEGATIVE (NEGATIVE) Urine Bilirubin NEGATIVE (NEGATIVE) Urine Urobilinogen 0.2 (<2.0) EU/dL Ur Leukocyte Esterase NEGATIVE (NEGATIVE) Urine RBC 1-2 (0-2/HPF) Urine WBC 2-3 (0-5/HPF) Ur Epithelial Cells OCCASIONAL (NONE-FEW) Amorphous Sediment FEW (NEGATIVE) Urine Bacteria FEW (NEGATIVE) Urine Mucus FEW (NONE-MOD) 08/28/18 Range/Units 22:01 WBC (4.0-11.0) K/uL RBC (4.30-5.90) M/uL Hgb (12.0-16.0) g/dL Hct (36.0-46.0) % MCV (80.0-98.0) fL MCH (27.0-32.0) pg MCHC (31.0-37.0) g/dL RDW Std Deviation (28.0-62.0) fl RDW Coeff of Danielle (11.0-15.0) % Plt Count (150-400) K/uL MPV (7.40-12.00) fL Add Manual Diff Neutrophils % (Manual) (48.0-80.0) % Band Neutrophils % % Lymphocytes % (Manual) (16.0-40.0) % Monocytes % (Manual) (0.0-15.0) % Nucleated RBC % /100WBC Absolute Seg Neuts (1.4-5.7) Band Neutrophils # Lymphocytes # (Manual) (0.6-2.4) Monocytes # (Manual) (0.0-0.8) Nucleated RBCs # K/uL INR Lactate 1.8 (0.20-2.00) mmol/L Sodium (136-145) mmol/L Potassium (3.5-5.1) mmol/L Chloride (98-107) mmol/L Carbon Dioxide (21.0-32.0) mmol/L BUN (7.0-18.0) mg/dL Creatinine (0.6-1.0) mg/dL Est Cr Clr Drug Dosing Estimated GFR (MDRD) ml/min Glucose (74-106) mg/dL Calcium (8.5-10.1) mg/dL Total Bilirubin (0.2-1.0) mg/dL AST (15-37) IU/L ALT (14-63) IU/L Alkaline Phosphatase (46-116) U/L Creatine Kinase (26-308) U/L Troponin I (0.000-0.056) ng/mL Total Protein (6.4-8.2) g/dL Albumin (3.4-5.0) g/dL Globulin (2.6-4.0) g/dL Albumin/Globulin Ratio (0.9-1.6) TSH 3rd Generation (0.36-3.74) uIU/mL Prolactin ng/mL Urine Color Urine Appearance Urine pH (5.0-8.0) Ur Specific Harrington (1.001-1.035) Urine Protein (NEGATIVE) mg/dL Urine Glucose (UA) (NEGATIVE) mg/dL Urine Ketones (NEGATIVE) mg/dL Urine Occult Blood (NEGATIVE) Urine Nitrite (NEGATIVE) Urine Bilirubin (NEGATIVE) Urine Urobilinogen (<2.0) EU/dL Ur Leukocyte Esterase (NEGATIVE) Urine RBC (0-2/HPF) Urine WBC (0-5/HPF) Ur Epithelial Cells (NONE-FEW) Amorphous Sediment (NEGATIVE) Urine Bacteria (NEGATIVE) Urine Mucus (NONE-MOD) Result Diagrams: 08/28/18 17:33 08/28/18 17:33 Rony Results Last 24 hrs: Microbiology 08/28/18 18:33 Anaerobic Blood Culture - Final Blood - Arm, Left 08/28/18 18:22 Anaerobic Blood Culture - Final Blood - Arm, Right - Problem List (1) Altered mental status SNOMED Code(s): 498382882 ICD Code: R41.82 - ALTERED MENTAL STATUS, UNSPECIFIED Status: Acute Priority: High Current Visit: Yes Qualifiers: Altered mental status type: unspecified Qualified Code(s): R41.82 - Altered mental status, unspecified (2) 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 SNOMED Code(s): 620550786 ICD Code: C11.3 - MALIGNANT NEOPLASM OF ANTERIOR WALL OF NASOPHARYNX Status : Chronic Priority: High Current Visit: Yes (3) Rhabdomyolysis SNOMED Code(s): 351082710 ICD Code: M62.82 - RHABDOMYOLYSIS Status: Acute Priority: High Current Visit: Yes Qualifiers: Rhabdomyolysis type: traumatic Encounter type: initial encounter Qualified Code(s): T79.6XXA - Traumatic ischemia of muscle, initial encounter (4) Elevated troponin SNOMED Code(s): 013870834, 673581521, 683604712 ICD Code: R74.8 - ABNORMAL LEVELS OF OTHER SERUM ENZYMES Status: Acute Priority: High Current Visit: Yes (5) Osteomyelitis SNOMED Code(s): 81838668 ICD Code: M86.9 - OSTEOMYELITIS, UNSPECIFIED Status: Chronic Priority: High Current Visit: Yes Qualifiers: Osteomyelitis type: chronic, with draining sinus Osteomyelitis location: other site Qualified Code(s): M86.48 - Chronic osteomyelitis with draining sinus, other site (6) Physical deconditioning SNOMED Code(s): 67542322010748 ICD Code: R53.81 - OTHER MALAISE Status: Chronic Priority: High Current Visit: Yes (7) Seizure disorder SNOMED Code(s): 155973579 ICD Code: G40.909 - EPILEPSY, UNSP, NOT INTRACTABLE, WITHOUT STATUS EPILEPTICUS Status: Chronic Priority: High Current Visit: Yes (8) Transaminitis SNOMED Code(s): 559521414, 334838611 ICD Code: R74.0 - NONSPEC ELEV OF LEVELS OF TRANSAMNS & LACTIC ACID DEHYDRGNSE Status: Chronic Priority: Medium Current Visit: Yes (9) Cerebral edema SNOMED Code(s): 7635904 ICD Code: G93.6 - CEREBRAL EDEMA Status: Chronic Priority: High Current Visit: Yes Problem List Initiated/Reviewed/Updated: Yes Orders Last 24hrs: Active Orders 24 hr Category Date Time Status Patient Status [ADT] Stat ADT 08/28/18 19:24 Active NPO [Nothing Per Oral Diet] [DIET] Diet 08/29/18 Breakfast Active CULTURE BLOOD [BC] Stat Lab 08/28/18 18:22 Results CULTURE BLOOD [BC] Stat Lab 08/28/18 18:33 Results CULTURE WOUND [RM] Stat Lab 08/28/18 17:50 Received LORazepam [Ativan] Med 08/28/18 20:58 Active 1 mg IVPUSH Q4H PRN Sodium Chloride 0.9% [Normal Saline] 1,000 ml Med 08/28/18 21:00 Active IV ASDIRECTED fentaNYL [Sublimaze] Med 08/28/18 21:50 Active 50 mcg IVPUSH Q2H PRN Blood Culture x2 Reflex Set [OM.PC] Stat Oth 08/28/18 18:00 Ordered Medication Orders Fentanyl (Sublimaze) 50 mcg IVPUSH Q2H PRN PRN Reason: Pain Last Admin: 08/29/18 04:30 Dose: 50 mcg Admin: 08/28/18 22:20 Dose: 50 mcg Sodium Chloride (Normal Saline) 1,000 mls @ 75 mls/hr IV ASDIRECTED RIVER Last Admin: 08/28/18 20:56 Dose: 75 mls/hr Lorazepam (Ativan) 1 mg IVPUSH Q4H PRN PRN Reason: Agitation Last Admin: 08/29/18 01:03 Dose: 1 mg Admin: 08/28/18 21:21 Dose: 1 mg Assessment/Plan Comment:: The patient is a 47-year-old lady who has a chronic history of brain cancer and has been followed by [facility] was last evaluated in 2018. The patient had been found down in her house apparently after rolling off the couch and has rhabdomyolysis. Patient's family also has said that the patient's quality of life has deteriorated significantly over the past 6 months. The patient is also in a DO NOT INTUBATE/DO NOT RESUSCITATE category. I had a long discussion with the patient's and her mother with regards to poor outcome. They had become accepting of the idea of hospice care and I have also discussed palliative care with them. The patient's CT examination which was obtained yesterday had shown mature bifrontal craniotomy flap with erosive bone changes bone demineralization and adjacent scalp swelling and small foci of gas that was suspicious for osteomyelitis. Because of this, the patient's overall significant decline in health I have recommended hospice consultation. For now we'll continue the patient on IV fluids but I have discontinued all antibiotics and have transitioned the patient to palliative care measures. I've ordered no further testing.
[2018-08-29] MEDS: Sodium Chloride 0.9% 1,000 ML IV SCH (09:31)
[2018-08-29] MEDS ORDERED: fentaNYL 25 MCG/HR Transdermal Patch TRDERM SCH (14:30)
[2018-08-30] MEDS: fentaNYL 100 MCG/2 ML SDV IVPUSH PRN ×3 (01:50→16:07)
[2018-08-30] MEDS: LORazepam 2 MG/ML SDV IVPUSH PRN (06:38)
--- NOTE | 2018-08-30 07:50 | PCM.PN ---
- General Info Date of Service: 08/30/18 Admission Dx/Problem (Free Text): Admission Diagnosis/Problem Admission Diagnosis/Problem Altered mental status Subjective Update: The patient is a chronically ill 47-year-old lady who has a chronic history of brain cancer, brain radiation, multiple surgeries, osteomyelitis of her skull and seizure disorder. The patient is more awake and cooperative today. She has denied any pain. The patient has been complaining primarily of thirst. Functional Status: Reports: Pain Controlled. Denies: Other (NPO) - Review of Systems General: Reports: No Symptoms HEENT: Reports: No Symptoms Pulmonary: Reports: No Symptoms Cardiovascular: Reports: No Symptoms Gastrointestinal: Reports: No Symptoms Genitourinary: Reports: No Symptoms Musculoskeletal: Reports: No Symptoms Skin: Reports: No Symptoms Neurological: Reports: No Symptoms Psychiatric: Reports: No Symptoms Systems Review Comment:: AMS, but improved - Patient Data Vitals - Most Recent: Last Vital Signs Temp 36.6 C 08/29/18 20:00 Pulse 108 H 08/29/18 20:00 Resp 19 08/29/18 20:00 BP 117/78 08/29/18 20:00 Pulse Ox 92 L 08/29/18 20:00 Weight - Most Recent: 70.3 kg Rony Results Last 24 Hours: Microbiology 08/28/18 18:33 Aerobic Blood Culture - Preliminary Blood - Arm, Left NO GROWTH AFTER 1 DAY Anaerobic Blood Culture - Final 08/28/18 18:22 Aerobic Blood Culture - Preliminary Blood - Arm, Right NO GROWTH AFTER 1 DAY Anaerobic Blood Culture - Final Med Orders - Current: Current Medications Fentanyl (Sublimaze) 50 mcg IVPUSH Q2H PRN PRN Reason: Pain Last Admin: 08/30/18 01:50 Dose: 50 mcg Fentanyl (Duragesic) 25 mcg TRDERM Q72H RIVER Last Admin: 08/29/18 15:07 Dose: 25 mcg Sodium Chloride (Normal Saline) 1,000 mls @ 75 mls/hr IV ASDIRECTED RIVER Last Admin: 08/29/18 09:31 Dose: 75 mls/hr Lorazepam (Ativan) 1 mg IVPUSH Q4H PRN PRN Reason: Agitation Last Admin: 08/30/18 06:38 Dose: 1 mg Discontinued Medications Sodium Chloride (Normal Saline) 500 mls @ 999 mls/hr IV STAT RIVER Sodium Chloride (Normal Saline) 1,000 mls @ 999 mls/hr IV STAT ONE Stop: 08/28/18 17:56 Last Admin: 08/28/18 17:17 Dose: 999 mls/hr Ceftriaxone Sodium/Dextrose 2 (gm/ Premix) 50 mls @ 100 mls/hr IV ONETIME ONE Stop: 08/28/18 18:01 Last Admin: 08/28/18 17:45 Dose: 100 mls/hr Vancomycin HCl 1 gm/ Sodium (Chloride) 250 mls @ 250 mls/hr IV ONETIME ONE Stop: 08/28/18 18:31 Last Admin: 08/28/18 19:08 Dose: 250 mls/hr Sodium Chloride (Normal Saline) 1,000 mls @ 999 mls/hr IV STAT ONE Stop: 08/28/18 19:43 Last Admin: 08/28/18 19:08 Dose: 999 mls/hr Sodium Chloride (Normal Saline) Confirm Administered Dose 250 mls @ as directed .ROUTE .STK-MED ONE Stop: 08/28/18 19:06 Last Admin: 08/28/18 19:34 Dose: Not Given Morphine Sulfate (Morphine) 2 mg IVPUSH Q2H PRN PRN Reason: Pain (severe 7-10) Vancomycin HCl (Vancocin) Confirm Administered Dose 1 gm .ROUTE .STK-MED ONE Stop: 08/28/18 19:05 Last Admin: 08/28/18 19:08 Dose: Not Given - Exam Quality Assessment: Supplemental Oxygen General: Alert, Cooperative, No Acute Distress. No: Oriented HEENT: Pupils Equal, Pupils Reactive Neck: Trachea Midline, Other (Scarring) Lungs: Crackles Cardiovascular: Regular Rate, Regular Rhythm GI/Abdominal Exam: Normal Bowel Sounds, Soft, No Distention (Female) Exam: Deferred Back Exam: No: Full Range of Motion Extremities: No Pedal Edema, Limited Range of Motion Skin: Warm, Dry, Intact Psy/Mental Status: Alert - Problem List & Annotations (1) Altered mental status SNOMED Code(s): 105678180 Code(s): R41.82 - ALTERED MENTAL STATUS, UNSPECIFIED Status: Acute Priority: High Current Visit: Yes Qualifiers: Altered mental status type: unspecified Qualified Code(s): R41.82 - Altered mental status, unspecified Annotation/Comment:: Improved (2) 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 SNOMED Code(s): 009228201 Code(s): C11.3 - MALIGNANT NEOPLASM OF ANTERIOR WALL OF NASOPHARYNX Status : Chronic Priority: High Current Visit: Yes (3) Rhabdomyolysis SNOMED Code(s): 385091045 Code(s): M62.82 - RHABDOMYOLYSIS Status: Acute Priority: High Current Visit: Yes Qualifiers: Rhabdomyolysis type: traumatic Encounter type: initial encounter Qualified Code(s): T79.6XXA - Traumatic ischemia of muscle, initial encounter (4) Elevated troponin SNOMED Code(s): 257089650, 614661920, 812554129 Code(s): R74.8 - ABNORMAL LEVELS OF OTHER SERUM ENZYMES Status: Acute Priority: High Current Visit: Yes (5) Osteomyelitis SNOMED Code(s): 86386756 Code(s): M86.9 - OSTEOMYELITIS, UNSPECIFIED Status: Chronic Priority: High Current Visit: Yes Qualifiers: Osteomyelitis type: chronic, with draining sinus Osteomyelitis location: other site Qualified Code(s): M86.48 - Chronic osteomyelitis with draining sinus, other site (6) Physical deconditioning SNOMED Code(s): 48683981817895 Code(s): R53.81 - OTHER MALAISE Status: Chronic Priority: High Current Visit: Yes (7) Seizure disorder SNOMED Code(s): 196503595 Code(s): G40.909 - EPILEPSY, UNSP, NOT INTRACTABLE, WITHOUT STATUS EPILEPTICUS Status: Chronic Priority: High Current Visit: Yes (8) Transaminitis SNOMED Code(s): 832887080, 724853068 Code(s): R74.0 - NONSPEC ELEV OF LEVELS OF TRANSAMNS & LACTIC ACID DEHYDRGNSE Status: Chronic Priority: Medium Current Visit: Yes (9) Cerebral edema SNOMED Code(s): 9147836 Code(s): G93.6 - CEREBRAL EDEMA Status: Chronic Priority: High Current Visit: Yes - Problem List Review Problem List Initiated/Reviewed/Updated: Yes - My Orders Last 24 Hours: My Active Orders 08/29/18 10:17 Consult to Hospice [CONS] Routine Resuscitation Status Routine 08/29/18 14:30 fentaNYL [Duragesic] 25 mcg TRDERM Q72H - Plan Plan:: The patient is a 47-year-old lady who has a chronic history of brain cancer and has been followed by [facility] was last evaluated in 2018. The patient had been found down in her house apparently after rolling off the couch and has rhabdomyolysis. Patient's family also has said that the patient's quality of life has deteriorated significantly over the past 6 months. The patient is also in a DO NOT INTUBATE/DO NOT RESUSCITATE category. I had a long discussion with the patient's and her mother with regards to poor outcome. They had become accepting of the idea of hospice care and I have also discussed palliative care with them. The patient's CT examination which was obtained yesterday had shown mature bifrontal craniotomy flap with erosive bone changes bone demineralization and adjacent scalp swelling and small foci of gas that was suspicious for osteomyelitis. Because of this, the patient's overall significant decline in health I have recommended hospice consultation. For now we'll continue the patient on IV fluids but I have discontinued all antibiotics and have transitioned the patient to palliative care measures. I've ordered no further testing. Overall, the patient is doing better today. The family has requested that fluids be removed. She is currently in palliative care measures. Pending hospice care. The patient will be given ice chips and sips of water for now. Continue with fentanyl as necessary to keep the patient relatively pain-free and Ativan as needed for agitation.
[2018-08-30] MEDS ORDERED: diphenhydrAMINE 50 MG/ML SDV IVPUSH PRN (17:40)
[2018-08-31] MEDS: LORazepam 2 MG/ML SDV IVPUSH PRN ×3 (01:00→22:42)
[2018-08-31] MEDS: fentaNYL 100 MCG/2 ML SDV IVPUSH PRN ×4 (04:40→19:00)
--- NOTE | 2018-08-31 06:45 | PCM.PN ---
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 She was admitted secondary to altered mental status. Patient's family has elected to have the patient as a DO NOT INTUBATE/DO NOT RESUSCITATE category with comfort care measures. She is more awake and alert today. She says that she would like to try something to eat. Her pain is been well controlled. She does have issues with short-term memory secondary to the brain cancer and brain radiation. Functional Status: Reports: Pain Controlled, Tolerating Diet - Review of Systems General: Reports: Weakness HEENT: Reports: Headaches Pulmonary: Reports: No Symptoms Cardiovascular: Reports: No Symptoms Gastrointestinal: Reports: No Symptoms Genitourinary: Reports: No Symptoms Musculoskeletal: Reports: No Symptoms Skin: Reports: No Symptoms Neurological: Reports: No Symptoms Psychiatric: Reports: No Symptoms - Patient Data Vitals - Most Recent: Last Vital Signs Temp 36.4 C 08/30/18 20:00 Pulse 98 08/30/18 20:00 Resp 19 08/30/18 20:00 BP 102/64 08/30/18 20:00 Pulse Ox 91 L 08/30/18 20:00 Weight - Most Recent: 70.3 kg Rony Results Last 24 Hours: Microbiology 08/28/18 18:33 Aerobic Blood Culture - Preliminary Blood - Arm, Left NO GROWTH AFTER 2 DAYS Anaerobic Blood Culture - Final 08/28/18 18:22 Aerobic Blood Culture - Preliminary Blood - Arm, Right NO GROWTH AFTER 2 DAYS Anaerobic Blood Culture - Final Med Orders - Current: Current Medications Diphenhydramine HCl (Benadryl) 50 mg IVPUSH Q6H PRN PRN Reason: Itching Fentanyl (Sublimaze) 50 mcg IVPUSH Q2H PRN PRN Reason: Pain Last Admin: 08/31/18 04:40 Dose: 50 mcg Fentanyl (Duragesic) 25 mcg TRDERM Q72H RIVER Last Admin: 08/29/18 15:07 Dose: 25 mcg Lorazepam (Ativan) 1 mg IVPUSH Q4H PRN PRN Reason: Agitation Last Admin: 08/31/18 01:00 Dose: 1 mg Discontinued Medications Sodium Chloride (Normal Saline) 500 mls @ 999 mls/hr IV STAT RIVER Sodium Chloride (Normal Saline) 1,000 mls @ 999 mls/hr IV STAT ONE Stop: 08/28/18 17:56 Last Admin: 08/28/18 17:17 Dose: 999 mls/hr Ceftriaxone Sodium/Dextrose 2 (gm/ Premix) 50 mls @ 100 mls/hr IV ONETIME ONE Stop: 08/28/18 18:01 Last Admin: 08/28/18 17:45 Dose: 100 mls/hr Vancomycin HCl 1 gm/ Sodium (Chloride) 250 mls @ 250 mls/hr IV ONETIME ONE Stop: 08/28/18 18:31 Last Admin: 08/28/18 19:08 Dose: 250 mls/hr Sodium Chloride (Normal Saline) 1,000 mls @ 999 mls/hr IV STAT ONE Stop: 08/28/18 19:43 Last Admin: 08/28/18 19:08 Dose: 999 mls/hr Sodium Chloride (Normal Saline) Confirm Administered Dose 250 mls @ as directed .ROUTE .STK-MED ONE Stop: 08/28/18 19:06 Last Admin: 08/28/18 19:34 Dose: Not Given Sodium Chloride (Normal Saline) 1,000 mls @ 75 mls/hr IV ASDIRECTED [facility] TO [facility] Last Admin: 08/29/18 09:31 Dose: 75 mls/hr Morphine Sulfate (Morphine) 2 mg IVPUSH Q2H PRN PRN Reason: Pain (severe 7-10) Vancomycin HCl (Vancocin) Confirm Administered Dose 1 gm .ROUTE .STK-MED ONE Stop: 08/28/18 19:05 Last Admin: 08/28/18 19:08 Dose: Not Given - Exam Quality Assessment: No: Supplemental Oxygen General: Alert, Cooperative, Other (Facial swelling, draining sinus forehead). No: Oriented HEENT: Pupils Equal, Pupils Reactive Neck: Supple, Other (Surgical scars) Lungs: Clear to Auscultation, Normal Respiratory Effort Cardiovascular: Regular Rate, Regular Rhythm GI/Abdominal Exam: Normal Bowel Sounds, No Distention (Female) Exam: Deferred Back Exam: Normal Inspection (Bedridden) Extremities: No Pedal Edema Skin: Warm, Dry, Intact Psy/Mental Status: Alert - Problem List & Annotations (1) Altered mental status SNOMED Code(s): 616607861 Code(s): R41.82 - ALTERED MENTAL STATUS, UNSPECIFIED Status: Acute Priority: High Current Visit: Yes Qualifiers: Altered mental status type: unspecified Qualified Code(s): R41.82 - Altered mental status, unspecified Annotation/Comment:: Improved (2) 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 SNOMED Code(s): 103886079 Code(s): C11.3 - MALIGNANT NEOPLASM OF ANTERIOR WALL OF NASOPHARYNX Status : Chronic Priority: High Current Visit: Yes (3) Rhabdomyolysis SNOMED Code(s): 534172008 Code(s): M62.82 - RHABDOMYOLYSIS Status: Acute Priority: High Current Visit: Yes Qualifiers: Rhabdomyolysis type: traumatic Encounter type: initial encounter Qualified Code(s): T79.6XXA - Traumatic ischemia of muscle, initial encounter (4) Elevated troponin SNOMED Code(s): 034389145, 822316940, 176635026 Code(s): R74.8 - ABNORMAL LEVELS OF OTHER SERUM ENZYMES Status: Acute Priority: High Current Visit: Yes (5) Osteomyelitis SNOMED Code(s): 94233535 Code(s): M86.9 - OSTEOMYELITIS, UNSPECIFIED Status: Chronic Priority: High Current Visit: Yes Qualifiers: Osteomyelitis type: chronic, with draining sinus Osteomyelitis location: other site Qualified Code(s): M86.48 - Chronic osteomyelitis with draining sinus, other site (6) Physical deconditioning SNOMED Code(s): 52648971400831 Code(s): R53.81 - OTHER MALAISE Status: Chronic Priority: High Current Visit: Yes (7) Seizure disorder SNOMED Code(s): 639824612 Code(s): G40.909 - EPILEPSY, UNSP, NOT INTRACTABLE, WITHOUT STATUS EPILEPTICUS Status: Chronic Priority: High Current Visit: Yes (8) Transaminitis SNOMED Code(s): 534345137, 699892715 Code(s): R74.0 - NONSPEC ELEV OF LEVELS OF TRANSAMNS & LACTIC ACID DEHYDRGNSE Status: Chronic Priority: Medium Current Visit: Yes (9) Cerebral edema SNOMED Code(s): 9290173 Code(s): G93.6 - CEREBRAL EDEMA Status: Chronic Priority: High Current Visit: Yes - Problem List Review Problem List Initiated/Reviewed/Updated: Yes - My Orders Last 24 Hours: My Active Orders 08/30/18 17:40 diphenhydrAMINE [Benadryl] 50 mg IVPUSH Q6H PRN - Plan Plan:: The patient is a 47-year-old lady who has a chronic history of brain cancer and has been followed by [facility] was last evaluated in 2018. The patient had been found down in her house apparently after rolling off the couch and has rhabdomyolysis. Patient's family also has said that the patient's quality of life has deteriorated significantly over the past 6 months. The patient is also in a DO NOT INTUBATE/DO NOT RESUSCITATE category. I had a long discussion with the patient's and her mother with regards to poor outcome. They had become accepting of the idea of hospice care and I have also discussed palliative care with them. The patient's CT examination which was obtained yesterday had shown mature bifrontal craniotomy flap with erosive bone changes bone demineralization and adjacent scalp swelling and small foci of gas that was suspicious for osteomyelitis. Because of this, the patient's overall significant decline in health I have recommended hospice consultation. For now we'll continue the patient on IV fluids but I have discontinued all antibiotics and have transitioned the patient to palliative care measures. I've ordered no further testing. Overall, the patient is doing better today. The family has requested that fluids be removed. She is currently in palliative care measures. Pending hospice care. The patient will be given ice chips and sips of water for now. Continue with fentanyl as necessary to keep the patient relatively pain-free and Ativan as needed for agitation. The patient is a 44-year-old lady who has a chronic history of brain cancer and is currently comfort measures only. The patient is more awake and alert today. She has had trouble swallowing but says that she would like to have something to eat. The patient's diet was advanced from nothing by mouth to clear liquids. We'll continue fentanyl to help keep the patient pain-free and Ativan as needed for her anxiety. She is to continue with palliative care measures.
[2018-09-01] MEDS: fentaNYL 100 MCG/2 ML SDV IVPUSH PRN ×3 (01:10→09:10)
--- NOTE | 2018-09-01 11:05 | PCM.DCSUM1 ---
<Danie Lowry - Last Filed: 09/01/18 10:59> Discharge Summary - Hospital Course Free Text/Narrative:: Admission date: 08/29/2018 Discharge date: 09/01/2018 Admission diagnosis: #1. Brain cancer s/p craniotomy #2. Hx of osteomyelitis of the skull #3. Severe chronic pain secondary to #1/2 #4. Elevated troponin #5. Altered mental status #6. Rhabdomyolysis Discharge diagnosis: #1. Brain cancer s/p craniotomy #2. Hx of osteomyelitis of the skull #3. Severe chronic pain secondary to #1/2 Disposition: Home with Hospice care Hospital course: 47F with the history above presented to the ER w/ altered mental status and having a fall found to have an elevated troponin, rhabdomyolysis. Patient is a DNR/DNI/Comfort care so medical management was not aggressive. Family preferred IV fluids discontinued, with emphasis on pain control. She was seen by hospice prior to discharge who is to follow the patient at home. Family and patient are opposed to SNF placement. In regards to pain control, she was on a fentanyl patch for controlling her pain and IV Fentanyl for breakthrough pain. Given her allergies to majority of opioids, he pain control for break through pain is limited. I advised the family that I would like to increase her fentanyl to 50mcg q72h, with an order for Abstral ( SL fentanyl) that would be used PRN. This however needs to be ordered by our hospital pharmacist, who is currently not available secondary to weather conditions. I advised the family that I feel comfortable having the patient go home today, with a close follow up so we can get the abstral arranged for citrus picker. Family agrees to the plan. - Discharge Data Discharge Date: 09/01/18 Discharge Disposition: DC/Tfer to Hospice - Home 48 Condition: Poor - Patient Summary/Data Consults: Consultations 08/29/18 10:17 Consult to Hospice [CONS] Routine - Patient Instructions Diet: Usual Diet as Tolerated Activity: As Tolerated Showering/Bathing: May Shower Notify Provider of: Fever, Increased Pain, Swelling and Redness, Nausea and/or Vomiting - Discharge Plan Prescriptions/Med Rec: fentaNYL [Duragesic] 50 mcg TRDERM Q72H #5 patch Home Medications: Home Meds Citalopram Hydrobromide [Celexa] 20 mg PO DAILY 01/03/17 [History] LORazepam 1 mg PO TID PRN 01/03/17 [History] OLANZapine [ZyPREXA] 10 mg PO DAILY 01/03/17 [History] Vancomycin 1 gm IV Q12H 01/03/17 [History] Tapentadol HCl [Nucynta] 50 mg PO Q6HR PRN 01/04/17 [History] Albuterol Sulfate [Proair Hfa] 1 - 2 puff IH Q4H PRN 01/06/17 [History] Benzonatate 200 mg PO Q8H PRN 01/06/17 [History] Dexamethasone 2 mg PO BID #21 tablet 01/06/17 [Rx] Ertapenem [INVanz] 1 gm IV Q24H vial 01/06/17 [Rx] Estrogens, Conjugated [Premarin] 0.625 mg PO DAILY 01/06/17 [History] Gabapentin [Neurontin] 100 mg PO DAILY 01/06/17 [History] Levothyroxine Sodium [Levo-T] 100 mcg PO DAILY 01/06/17 [History] Ondansetron [Zofran ODT] 4 mg PO TID PRN 01/06/17 [History] traMADol HCl [Tramadol HCl] 50 mg PO QID PRN 01/06/17 [History] fentaNYL [Duragesic] 50 mcg TRDERM Q72H #5 patch 09/01/18 [Rx] Forms: ED Department Discharge Referrals: Cliff Romero MD [Primary Care Provider] - - Discharge Summary/Plan Comment DC Time >30 min.: Yes - Patient Data Vitals - Most Recent: Last Vital Signs Temp 36.4 C 08/31/18 20:00 Pulse 98 08/31/18 20:00 Resp 19 08/31/18 20:00 BP 102/64 08/31/18 20:00 Pulse Ox 91 L 08/31/18 20:00 Weight - Most Recent: 70.3 kg I&O - Last 24 hours: Intake & Output 08/31/18 09/01/18 09/01/18 22:59 06:59 14:59 Intake Total 10 Balance 10 VICKI Results - Last 24 hrs: Microbiology 08/28/18 18:33 Aerobic Blood Culture - Preliminary Blood - Arm, Left NO GROWTH AFTER 3 DAYS Anaerobic Blood Culture - Final 08/28/18 18:22 Aerobic Blood Culture - Preliminary Blood - Arm, Right NO GROWTH AFTER 3 DAYS Anaerobic Blood Culture - Final 08/28/18 17:50 Wound Culture - Final Head - Abscess Enterococcus Faecalis Staphylococcus Aureus Med Orders - Current: Current Medications Diphenhydramine HCl (Benadryl) 50 mg IVPUSH Q6H PRN PRN Reason: Itching Fentanyl (Sublimaze) 50 mcg IVPUSH Q2H PRN PRN Reason: Pain Last Admin: 09/01/18 09:10 Dose: 50 mcg Fentanyl (Duragesic) 25 mcg TRDERM Q72H RIVER Last Admin: 08/29/18 15:07 Dose: 25 mcg Lorazepam (Ativan) 1 mg IVPUSH Q4H PRN PRN Reason: Agitation Last Admin: 08/31/18 22:42 Dose: 1 mg Discontinued Medications Sodium Chloride (Normal Saline) 500 mls @ 999 mls/hr IV STAT RIVER Sodium Chloride (Normal Saline) 1,000 mls @ 999 mls/hr IV STAT ONE Stop: 08/28/18 17:56 Last Admin: 08/28/18 17:17 Dose: 999 mls/hr Ceftriaxone Sodium/Dextrose 2 (gm/ Premix) 50 mls @ 100 mls/hr IV ONETIME ONE Stop: 08/28/18 18:01 Last Admin: 08/28/18 17:45 Dose: 100 mls/hr Vancomycin HCl 1 gm/ Sodium (Chloride) 250 mls @ 250 mls/hr IV ONETIME ONE Stop: 08/28/18 18:31 Last Admin: 08/28/18 19:08 Dose: 250 mls/hr Sodium Chloride (Normal Saline) 1,000 mls @ 999 mls/hr IV STAT ONE Stop: 08/28/18 19:43 Last Admin: 08/28/18 19:08 Dose: 999 mls/hr Sodium Chloride (Normal Saline) Confirm Administered Dose 250 mls @ as directed .ROUTE .STK-MED ONE Stop: 08/28/18 19:06 Last Admin: 08/28/18 19:34 Dose: Not Given Sodium Chloride (Normal Saline) 1,000 mls @ 75 mls/hr IV ASDIRECTED RIVER Last Admin: 08/29/18 09:31 Dose: 75 mls/hr Morphine Sulfate (Morphine) 2 mg IVPUSH Q2H PRN PRN Reason: Pain (severe 7-10) Vancomycin HCl (Vancocin) Confirm Administered Dose 1 gm .ROUTE .STK-MED ONE Stop: 08/28/18 19:05 Last Admin: 08/28/18 19:08 Dose: Not Given <Jenaro Lou - Last Filed: 09/01/18 11:45> Discharge Summary - Hospital Course HPI Initial Comments: I have seen and examined the patient independently of medical facilities section director. I agree with the assessment and plan of care as outlined for this patient by the resident. Please see orders. The patient has been dealing with health issues for the past 10 years. Palliative care measures were instituted. Her medications were adjusted. She will continue with pain management at home. 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 SNOMED Code(s): 596424206 ICD Code: C11.3 - MALIGNANT NEOPLASM OF ANTERIOR WALL OF NASOPHARYNX Status : Chronic Priority: High Current Visit: Yes (3) Rhabdomyolysis SNOMED Code(s): 518618826 ICD Code: M62.82 - RHABDOMYOLYSIS Status: Acute Priority: High Current Visit: Yes Qualifiers: Rhabdomyolysis type: traumatic Encounter type: initial encounter Qualified Code(s): T79.6XXA - Traumatic ischemia of muscle, initial encounter (4) Elevated troponin SNOMED Code(s): 490665859, 853368008, 362082325 ICD Code: R74.8 - ABNORMAL LEVELS OF OTHER SERUM ENZYMES Status: Acute Priority: High Current Visit: Yes (5) Osteomyelitis SNOMED Code(s): 97474193 ICD Code: M86.9 - OSTEOMYELITIS, UNSPECIFIED Status: Chronic Priority: High Current Visit: Yes Qualifiers: Osteomyelitis type: chronic, with draining sinus Osteomyelitis location: other site Qualified Code(s): M86.48 - Chronic osteomyelitis with draining sinus, other site (6) Physical deconditioning SNOMED Code(s): 66634921076360 ICD Code: R53.81 - OTHER MALAISE Status: Chronic Priority: High Current Visit: Yes (7) Seizure disorder SNOMED Code(s): 252785701 ICD Code: G40.909 - EPILEPSY, UNSP, NOT INTRACTABLE, WITHOUT STATUS EPILEPTICUS Status: Chronic Priority: High Current Visit: Yes (8) Transaminitis SNOMED Code(s): 087578598, 097008774 ICD Code: R74.0 - NONSPEC ELEV OF LEVELS OF TRANSAMNS & LACTIC ACID DEHYDRGNSE Status: Chronic Priority: Medium Current Visit: Yes (9) Cerebral edema SNOMED Code(s): 2759649 ICD Code: G93.6 - CEREBRAL EDEMA Status: Chronic Priority: High Current Visit: Yes - Patient Summary/Data Consults: Consultations 08/29/18 10:17 Consult to Hospice [CONS] Routine - Patient Data Vitals - Most Recent: Last Vital Signs Temp 36.4 C 08/31/18 20:00 Pulse 98 08/31/18 20:00 Resp 19 08/31/18 20:00 BP 102/64 08/31/18 20:00 Pulse Ox 91 L 08/31/18 20:00 I&O - Last 24 hours: Intake & Output 08/31/18 09/01/18 09/01/18 22:59 06:59 14:59 Intake Total 10 Balance 10 VICKI Results - Last 24 hrs: Microbiology 08/28/18 18:33 Aerobic Blood Culture - Preliminary Blood - Arm, Left NO GROWTH AFTER 3 DAYS Anaerobic Blood Culture - Final 08/28/18 18:22 Aerobic Blood Culture - Preliminary Blood - Arm, Right NO GROWTH AFTER 3 DAYS Anaerobic Blood Culture - Final 08/28/18 17:50 Wound Culture - Final Head - Abscess Enterococcus Faecalis Staphylococcus Aureus Med Orders - Current: Current Medications Diphenhydramine HCl (Benadryl) 50 mg IVPUSH Q6H PRN PRN Reason: Itching Fentanyl (Sublimaze) 50 mcg IVPUSH Q2H PRN PRN Reason: Pain Last Admin: 09/01/18 09:10 Dose: 50 mcg Fentanyl (Duragesic) 25 mcg TRDERM Q72H RIVER Last Admin: 08/29/18 15:07 Dose: 25 mcg Lorazepam (Ativan) 1 mg IVPUSH Q4H PRN PRN Reason: Agitation Last Admin: 08/31/18 22:42 Dose: 1 mg Discontinued Medications Sodium Chloride (Normal Saline) 500 mls @ 999 mls/hr IV STAT RIVER Sodium Chloride (Normal Saline) 1,000 mls @ 999 mls/hr IV STAT ONE Stop: 08/28/18 17:56 Last Admin: 08/28/18 17:17 Dose: 999 mls/hr Ceftriaxone Sodium/Dextrose 2 (gm/ Premix) 50 mls @ 100 mls/hr IV ONETIME ONE Stop: 08/28/18 18:01 Last Admin: 08/28/18 17:45 Dose: 100 mls/hr Vancomycin HCl 1 gm/ Sodium (Chloride) 250 mls @ 250 mls/hr IV ONETIME ONE Stop: 08/28/18 18:31 Last Admin: 08/28/18 19:08 Dose: 250 mls/hr Sodium Chloride (Normal Saline) 1,000 mls @ 999 mls/hr IV STAT ONE Stop: 08/28/18 19:43 Last Admin: 08/28/18 19:08 Dose: 999 mls/hr Sodium Chloride (Normal Saline) Confirm Administered Dose 250 mls @ as directed .ROUTE .STK-MED ONE Stop: 08/28/18 19:06 Last Admin: 08/28/18 19:34 Dose: Not Given Sodium Chloride (Normal Saline) 1,000 mls @ 75 mls/hr IV ASDIRECTED [facility] Last Admin: 08/29/18 09:31 Dose: 75 mls/hr Morphine Sulfate (Morphine) 2 mg IVPUSH Q2H PRN PRN Reason: Pain (severe 7-10) Vancomycin HCl (Vancocin) Confirm Administered Dose 1 gm .ROUTE .STK-MED ONE Stop: 08/28/18 19:05 Last Admin: 08/28/18 19:08 Dose: Not Given
[2018-09-01 13:17] VITALS: BP 121/73
== END 2018-09-01 13:30 | disposition hospice, home (50) ==
LOC: MW.ED 16:19 → MW.MS 20:01
PROVIDERS: ADMIT Internal Medicine; ATTEND Internal Medicine
DX: R41.82 Altered mental status, unspecified (principal); M86.48 Chronic osteomyelitis with draining sinus, other site; C71.9 Malignant neoplasm of brain, unspecified; C11.3 Malignant neoplasm of anterior wall of nasopharynx; G89.29 Other chronic pain; Z51.5 Encounter for palliative care; F17.200 Nicotine dependence, unspecified, uncomplicated; M62.82 Rhabdomyolysis; F41.9 Anxiety disorder, unspecified; F32.9 Major depressive disorder, single episode, unspecified; R53.81 Other malaise; G40.909 Epilepsy, unspecified, not intractable, without status epilepticus; G93.6 Cerebral edema; Z98.890 Other specified postprocedural states; Z66 Do not resuscitate; Z79.899 Other long term (current) drug therapy; Z88.5 Allergy status to narcotic agent; Z91.030 Bee allergy status
CPT/HCPCS: 36415; 70450; 71045; 73060; 73090; 80053; 81001; 82550; 83605; 84146; 84443; 84484; 85025; 85610; 87040; 87070; 87077; 87186; 93005; A9270; J0696; J1642; J2060; J3010; J3370; J7040; J7050